=== PATIENT | female | born 1985 | race Caucasian/White ===

== ENCOUNTER → 2017-07-07 16:26 | Outpatient (CLI) | payer OTHER, SELFPAY ==
--- NOTE | 2017-07-07 16:31 | RAD_ITS ---
STUDY: X-RAY - ABDOMEN/PELVIS REASON FOR EXAM: Female, 32 years old. Pain. TECHNIQUE: AP supine and upright views of the abdomen and pelvis. COMPARISON: None. FINDINGS: Normal visualized lung bases. There is an unremarkable bowel gas pattern. There is no demonstrated free abdominal air. The visualized liver, spleen and kidneys are grossly normal in size and morphology. Normal soft tissue structures. Normal visualized osseous structures. RAD/Abd Inc Decub and/or Erect IMPRESSION: Normal x-ray examination of the abdomen and pelvis. Electronically Signed: Chaparro Castaneda MD at 16:54 EDT , Service support ,
== END ==
PROVIDERS: Family Provider Family Medicine; PCP Family Medicine; Visit Provider Nurse Practitioner Adult Health
DX: R10.9 Unspecified abdominal pain (principal)
CPT/HCPCS: 74019

== ENCOUNTER → 2017-07-09 10:46 | Outpatient (CLI) | payer OTHER, SELFPAY ==
[2017-07-09 12:06] LABS: Absolute Lymphocyte Count 2.98 X10^3/ul (0.83-4.51); Absolute Neutrophil Count 6.6 X10^3/uL (2.0-7.7); Basophil# 0.07 X10^3/uL; Basophil% 0.6 % (0-1); Eosinophil# 0.56 X10^3/uL; Eosinophils% 5.2 % (0-5); Hematocrit 40.7 % (37-47); Hemoglobin 13.8 g/dl (12.0-15.0); Lymphocyte # 2.98 X10^3/ul (4.0); Lymphocyte % 27.4 % (19-41); Mean Corp Hgb Conc 33.9 g/gl (32-36); Mean Corpuscular Hgb 29.3 pg (27.0-32.0); Mean Corpuscular Volume 86.4 fL (81-99); Mean Platelet Vol. 10.8 fl (6.2-12.0); Monocyte# 0.65 X10^3/uL; Neutrophil # 6.58 X10^3/uL (2.7-7.7); Neutrophil % 60.6 % (47-70); POSITIVE COUNT NO; POSITIVE DIFFERENTIAL NO; POSITIVE MORPHOLOGY NO; Platelet Count 368 K/mm3 (150-450); RBC Distribution Width CV 12.9 % (11.6-14.6); RBC Distribution Width SD 40.1 fl (35.1-43.9); Red Blood Count 4.71 M/mm3 (4.2-5.4); White Blood Count 10.9 K/mm3 (4.4-11.0)
[2017-07-09 12:21] LABS: D-Dimer Quantitative (DVT/PE) < 0.27 FEU/ug/m (0.27-0.49)
[2017-07-09 12:26] LABS: Anion Gap 7 (5-15); BUN 11 mg/dL (7-18); BUN/Creat Ratio 13.1 RATIO (10-20); Calcium,Total 9.1 mg/dL (8.5-10.1); Chloride 108 mmol/L (98-107); Creatinine, Serum 0.84 mg/dL (0.55-1.02); EST Glomerular Filtration Rate 83 mL/min (>60); Est Glom Filt Rate - Afr Amer 101 mL/min (>60); Glucose 83 mg/dL (74-106); Sodium Level 138 mmol/L (136-145)
== END ==
PROVIDERS: Family Provider Family Medicine; PCP Family Medicine; Visit Provider Family Medicine
DX: M54.9 Dorsalgia, unspecified (principal)
CPT/HCPCS: 36415; 80048; 85025; 85379

== ENCOUNTER 2017-07-12 18:14 | Emergency (ER) | payer OTHER, SELFPAY ==
[2017-07-12 18:15] VITALS: BP 129/82; PULSE 87; RESP 16; TEMP 37; O2SAT 99; BMI 41.5
--- NOTE | 2017-07-12 19:06 | CT_ITS ---
STUDY: CT ABDOMEN AND PELVIS WITH CONTRAST REASON FOR EXAM: Female, 32 years old. Left-sided abdominal pain. RADIATION DOSAGE (If Supplied By Facility): CTDIvol = ( 15.39 ) mGy, DLP = ( 1230.71 ) mGycm TECHNIQUE: Transaxial images were obtained from the dome of the diaphragm to the symphysis pubis without oral contrast. 100 ml of Isovue 300 contrast was administered. Sagittal and coronal images were reconstructed. Individualized dose optimization techniques were used for this CT. COMPARISON: 02/02/2013. FINDINGS: The visualized lung bases are unremarkable. The visualized portions of the heart are within normal limits. There is decreased attenuation of the liver consistent with steatosis. There is a solitary 3 cm gallstone. Normal spleen. Normal pancreas. Normal bilateral adrenal glands. Normal right kidney. Normal left kidney. Normal visualized stomach. Normal small intestine. Normal colon. The appendix is visualized and appears normal. Normal abdominal aorta. Normal inferior vena cava. Normal retroperitoneum. Normal urinary bladder. Normal visualized uterus. Normal abdominal wall. Degenerative changes seen of the disc at L4-L5, otherwise negative osseous structures. CT/Abdomen/Pelvis W IV Cont ONLY IMPRESSION: Cholelithiasis. Electronically Signed: Keo Gardner MD at 20:49 EDT , Service support ,
--- NOTE | 2017-07-12 19:06 | EKG12_ITS ---
Test Reason : CP Blood Pressure : / mmHG Vent. Rate : 080 BPM Atrial Rate : 080 BPM P-R Int : 150 ms QRS Dur : 088 ms QT Int : 384 ms P-R-T Axes : 009 025 018 degrees QTc Int : 442 ms Normal sinus rhythm Normal ECG Confirmed by OMAYRA FORRESTER MD ([id number]), manager editorial NIDA SALCEDO ([id number] on 07/15/2017 1:21:12 PM Referred By: ЕЛЕНА
--- NOTE | 2017-07-12 19:08 | ED.VISSUMM ---
- ER Visit Summary Date of Service: 07/12/17 Chief Complaint: Left flank and chest pain History of Present Illness: The patient is a 32 F 1 week history of left flank pain. Denies trauma. Denies radicular symptoms. No urinary symptoms. Saw PCP office initially 5 days ago had a urine test negative. X-rays told her constipation put on laxatives. She had daily bowel movements prior. Saw PCP on 3 days ago had urine test scans negative. She states she had a PE rule out with blood tests which was negative. No image studies. He was told likely muscle strain. 2 days ago intermittent left upper chest wax and waning chest pain worse with dyspnea. No cough. No PE risk factors. Patient only takes multivitamins. No tobacco history. States an uncle had heart failure which started in her 20s however no MIs. States pain is mild at this time however still has pain in the left flank and in her left upper chest. No previous similar symptoms in the past. Physical Examination: General: Alert and oriented ?3, no acute distress HEENT: Normocephalic, atraumatic. Moist mucosa membranes Neck: supple, nontender. Cardiovascular: Regular rate and rhythm, no murmurs Respiratory: Normal breath sounds, symmetric, no distress Abdomen: Soft, nontender, nondistended Back: Mild left CVA tenderness without rash or ecchymosis Extremities: Nontender, no edema, pulses intact ?4 Neuro: no focal neurological deficits. Test Results: EKG sinus rate of [address] or T-wave changes. Troponin negative. Hemoglobin 13.9. Creatinine 0.84. Urine noted blood. CT abdomen pelvis IV contrast notes cholelithiasis. Emergency Department Course and Treatment: Patient flank pain denies urine symptoms. Urine did no blood however she is on her menstrual period. HCG negative. CT abdomen pelvis IV contrast shows cholelithiasis. Cardiac workup negative. MAMADOU score 0. Heart scores a 1. Chest pain symptoms resolved. Reported outpatient d-dimer test was negative. Patient more reassured. She will follow-up with PCP for reevaluation further testing as needed. Treatment Plan: [] Disposition: Discharge Impression: 1. Atypical chest pain 2. Left flank pain This note was generated with [employer] software. It may contain incorrect words, spelling, and punctuation that were not noted in review of the chart prior to signing ED Disposition - Plan for ED Patient: Disposition: Home or Assisted Living Chief Complaint: Chest Pain Diagnosis: Atypical chest pain, Left flank pain Instructions: ED Chest Pain [facility] Ch, ED Flank Pain Uncertain Cause Referrals: Papo Guido MD [Primary Care Provider] - 3-5 Days
[2017-07-12 19:45] LABS: Bacteria 0 SEEN /hpf (None Seen); Mucous, Urine 0 SEEN /hpf (<or=2+)
[2017-07-12 19:47] LABS: Color, Urine Yellow (Yellow); Glucose, Dipstick Normal (Normal); Ketone-Dipstick Negative (Negative); Leukocyte Esterase-Dipstick 25 /ul (Negative); Nitrite-Dipstick Negative (Negative); Occult Blood-Urine 250 /ul (Negative); Protein-Dipstick Negative (Negative); Specific Gravity, Urine 1.015 (1.002-1.030); Urine Bilirubin Dipstick Negative (Negative); Urine Clarity Clear (Clear); Urine Urobilinogen Normal (Normal)
[2017-07-12 19:48] LABS: Absolute Neutrophil Count 7.3 X10^3/uL (2.0-7.7); Basophil# 0.08 X10^3/uL; Basophil% 0.6 % (0-1); Eosinophil# 0.93 X10^3/uL; Eosinophils% 7.2 % (0-5); Hematocrit 40.9 % (37-47); Hemoglobin 13.9 g/dl (12.0-15.0); Lymphocyte % 28.8 % (19-41); Mean Corpuscular Hgb 29.4 pg (27.0-32.0); Mean Corpuscular Volume 86.7 fL (81-99); Mean Platelet Vol. 10.4 fl (6.2-12.0); Monocyte# 0.79 X10^3/uL; Monocyte% 6.2 % (0-10); Neutrophil # 7.29 X10^3/uL (2.7-7.7); Neutrophil % 56.8 % (47-70); POSITIVE COUNT NO; POSITIVE DIFFERENTIAL NO; POSITIVE MORPHOLOGY NO; Platelet Count 371 K/mm3 (150-450); RBC Distribution Width CV 12.9 % (11.6-14.6); RBC Distribution Width SD 40.1 fl (35.1-43.9); Red Blood Count 4.72 M/mm3 (4.2-5.4); White Blood Count 12.8 K/mm3 (4.4-11.0)
[2017-07-12 19:53] LABS: Red Blood Cells-Urine 50-100 SEEN /hpf (0-5); Squamous Epithelial Cells - UA 0-5 SEEN /hpf (5-10); White Blood Cells 0-5 SEEN /hpf (0-5)
[2017-07-12] MEDS: 0.9% Normal Saline 1,000 ML 150 ML IV (19:59)
[2017-07-12 20:07] LABS: Anion Gap 7 (5-15); BUN 10 mg/dL (7-18); BUN/Creat Ratio 11.9 RATIO (10-20); Calcium,Total 8.8 mg/dL (8.5-10.1); Chloride 107 mmol/L (98-107); Creatinine, Serum 0.84 mg/dL (0.55-1.02); EST Glomerular Filtration Rate 83 mL/min (>60); Est Glom Filt Rate - Afr Amer 100 mL/min (>60); Estimated Creatinine Clearance 85.72 ml/min; Glucose 90 mg/dL (74-106); Potassium 3.7 mmol/L (3.5-5.1); Sodium Level 140 mmol/L (136-145)
[2017-07-12 20:31] LABS: Pregnancy, Serum, hCG Quali. NEGATIVE Negative (0-9 Nonpreg)
[2017-07-12 20:48] VITALS: BP 108/65; PULSE 74; RESP 18; O2SAT 99
[2017-07-12 22:02] VITALS: BP 120/71; PULSE 88; RESP 18; O2SAT 96
== END 2017-07-12 22:05 | disposition home or self-care (01) ==
PROVIDERS: Emergency Provider Emergency Medicine; Family Provider Family Medicine; PCP Family Medicine
DX: R07.89 Other chest pain (principal); R10.9 Unspecified abdominal pain; R06.00 Dyspnea, unspecified; K80.20 Calculus of gallbladder without cholecystitis without obstruction
CPT/HCPCS: 74177; 80048; 81001; 84484; 84703; 85025; 93005; 96360; 96361; 99284; J7030; Q9967; A4216

== ENCOUNTER → 2017-11-13 12:08 | Outpatient (CLI) | payer OTHER, SELFPAY | PROVIDERS: Family Provider Family Medicine; PCP Family Medicine; Visit Provider Family Medicine | DX: S99.921A Unspecified injury of right foot, initial encounter (principal); X58.XXXA Exposure to other specified factors, initial encounter; Y93.9 Activity, unspecified; Y92.9 Unspecified place or not applicable; Y99.9 Unspecified external cause status | CPT/HCPCS: 73630 ==

== ENCOUNTER 2018-04-22 09:50 | Emergency (ER) | payer OTHER, SELFPAY ==
[2018-04-22 09:53] VITALS: BP 122/88; PULSE 71; RESP 16; TEMP 36.7; O2SAT 98; BMI 41.1
--- NOTE | 2018-04-22 10:13 | CT_ITS ---
STUDY: CT BRAIN WITHOUT CONTRAST REASON FOR EXAM: Female, 32 years old. Headaches. Vertigo. RADIATION DOSAGE (If Supplied By Facility): CTDIvol = ( 44.99 ) mGy, DLP = ( 728.62 ) mGycm TECHNIQUE: Transaxial CT imaging of the brain was performed without administration of intravenous contrast material. Individualized dose optimization techniques were used for this CT. COMPARISON: None. FINDINGS: Normal soft tissue structures. Normal calvarium. Normal size ventricles and extra-axial spaces for the patient's age. Normal white matter tracts of the cerebral hemispheres. Normal basal ganglia and thalami. Normal brainstem. Normal cerebellum. There is no intracranial hemorrhage. There are no findings of an acute ischemic infarction. Normal visualized paranasal sinuses. CT/Brain/Head without Contrast IMPRESSION: Normal unenhanced CT scan of the brain. Electronically Signed: Noel Perrin MD at 11:38 EST , Service support ,
--- NOTE | 2018-04-22 10:41 | ED.VISSUMM ---
- ER Visit Summary Date of Service: 04/22/18 Chief Complaint: Migraine History of Present Illness: The patient is a 32 F with a frontal headache. The pain is located at her crown and behind both of her eyes. Worse with light. This has been going on for 4 days and has been getting worse. She reports associated nausea and vomiting with tinnitus and she did have some vertigo which resolved. She denies head injuries or blood thinners. She had migraines in college but has not had headaches for years. No fevers or other symptoms. Physical Examination: Afebrile and vital signs unremarkable. Alert and oriented. Uncomfortable but no acute distress. Head and neck atraumatic. HEENT exam unremarkable. Neck is nontender with no meningeal signs. Skin normal in color without rash. Good strength and sensation. Cranial nerves grossly intact. Test Results: CT brain pending Emergency Department Course and Treatment: Patient has a history of migraines. She does have new tinnitus and vertigo and her symptoms are worse than they have been. A CT was ordered. Please note that she did have a CTA which was unremarkable a few years ago. I have low suspicion for aneurysm. Treated with fluids, Compazine, Benadryl, Toradol while awaiting results. CT brain was unremarkable. On reevaluation, her pain was 1 or 2 out of 10. Patient will be discharged. Stay rested and hydrated. Follow-up with neurology and/or primary care. Treatment Plan: As above Disposition: Discharge Impression: 1. Acute headache This note was generated with [employer] dictation software. It may contain incorrect words, spelling, and punctuation that were not noted in review of the chart prior to signing ED Disposition - Plan for ED Patient: Referrals: Papo Guido MD [Primary Care Provider] -
[2018-04-22] MEDS: DiphenhydrAMINE 50 MG/ML Syringe IV (11:02)
[2018-04-22] MEDS: Ketorolac 30 MG/ML Syringe IV (11:02)
[2018-04-22] MEDS: 0.9% Normal Saline 1,000 ML 999 ML IV (11:02)
[2018-04-22] MEDS: proCHLORPERazine 10 MG/2 ML Vial IV (11:02)
--- NOTE | 2018-04-22 12:03 | ED.DEP ---
ED Disposition - Plan for ED Patient: Instructions: ED Cephalgia Unspecified Referrals: Papo Guido MD [Primary Care Provider] - Ryder Bucio MD [STAFF PHYSICIAN] -
[2018-04-22 12:29] VITALS: BP 119/73; PULSE 58; RESP 18; O2SAT 94
== END 2018-04-22 12:30 | disposition home or self-care (01) ==
PROVIDERS: Emergency Provider Emergency Medicine; Family Provider Family Medicine; PCP Family Medicine
DX: R51 Headache (principal); R11.2 Nausea with vomiting, unspecified; R42 Dizziness and giddiness; H93.19 Tinnitus, unspecified ear
CPT/HCPCS: 70450; 96361; 96374; 96375; 99283; J7030

== ENCOUNTER → 2018-05-26 16:27 | Outpatient (CLI) | payer OTHER, SELFPAY ==
[2018-05-29 11:57] LABS: EBV Acute VCA IgM < 36.0 U/mL (0.0-35.9); EBV Early Antigen IgG <9.0 U/mL (0.0-8.9); EBV Nuclear Antigen IgG 87.6 U/mL (0.0-17.9); EBV-VCA IgG < 18.0 U/mL (0.0-17.9)
== END ==
PROVIDERS: Family Provider Family Medicine; PCP Family Medicine; Referring Provider Family Medicine; Visit Provider Family Medicine
DX: J02.9 Acute pharyngitis, unspecified (principal)
CPT/HCPCS: 36415; 86663; 86664; 86665

== ENCOUNTER 2019-01-04 18:30 | Emergency (ER) | payer OTHER, SELFPAY ==
[2019-01-04 18:31] VITALS: BP 123/63; PULSE 77; RESP 16; TEMP 36.6; O2SAT 98; BMI 42.5
--- NOTE | 2019-01-04 18:49 | ED.DCSUM_ITS ---
History of Present Illness Chief Complaint: Cough Detail of Chief Complaint: Wheezing with history of asthma Informant: Patient, Significant Other Onset: Days - Onset of illness 10 days ago. Worse the past 36 hours Context: Gradual Onset Timing: Continuous Quality: Productive cough, Nasal symptoms and wheezing Location: Respiratory Current Severity: Mild Maximum Severity: Moderate Worsened by: Coughing and activity Relieved by: Nothing Associated Symptoms: Respiratory symptoms Narrative: Patient is a 33-year-old non-smoker who presents with wheezing and productive cough of colored sputum. Onset of illness 10 days ago. Worse the past 36 hours. She does report nasal congestion. Denies ear pain, decreased hearing or ringing or ears. She denies sore throat, change in voice or difficulty swallowing. She does report shortness of breath as well as wheezing. She used her inhaler twice today. She has not been on prednisone the last 3 to 6 months. There is no history of PE or DVT. She denies leg pain, swelling or discoloration. Prior similar symptoms: Yes Recent Illness/Hospitalization: No - Past Medical History (1) History of asthma Status: Acute Past Medical History - Allergies and Home Meds Allergies/Adverse Reactions: Allergies hydromorphone HCl [From Dilaudid] Allergy (Verified 01/04/19 18:33) Hives Penicillins Allergy (Verified 01/04/19 18:33) Rash Primary Care Physician: Papo Guido MD [Primary Care Provider] - Surgical History: and left knee repair Lives: Spouse/ Significant Other Smoking Status: Light Smoker (<10/day) Alcohol: Rare Drugs: None Review of Systems General: Denies: Chills, Fever, Sweats Eyes: Denies: Visual changes - bilaterally, Blurred Vision - bilaterally, Diplopia ENT: Reports: Rhinorrhea. Denies: Bilateral ear pain, Sore throat Cardiovascular: Reports: Chest pain. Denies: Palpitations, Heart racing Respiratory: Reports: Dyspnea, Cough, Sputum, Dyspnea on exertion, - - Wheezing. Denies: Orthopnea, Paroxysmal nocturnal dyspnea Gastrointestinal: Denies: Abdominal pain, Nausea, Vomiting, Diarrhea, Melena, Hematochezia Musculoskeletal: Denies: Myalgias, Arthralgias, Neck pain, Back pain, Swelling, Extremity Pain, -, - Skin: Denies: Rash, Wounds Neurological: Denies: Headache, Weakness, Parasthesia Hematologic: Denies: Easy bruising, Easy bleeding Physical Exam Vital Signs/Narrative: Vital Signs Temp Pulse Resp BP Pulse Ox 01/04/19 18:31 97.9 F 77 16 123/63 H 98 Inital Vital Signs reviewed: Yes General: Well nourished, Well developed, Obese, Acute Distress Head: Normocephalic, Atraumatic Eyes: Perrl, EOMI. Negative for: Pale conjunctiva, Scleral icterus ENT: Moist mucous membranes, No rhinorrhea, TM's clear Neck: Supple, Nontender, No lymphadenopathy, No JVD Cardiovascular: Regular rate, Regular rhythm, No murmurs, Normal S1, Normal S2 Respiratory: Chest nontender, Wheezing, Decreased Air Movement. Negative for: No distress, CTA bilaterally Abdomen: Soft, Nontender, Nondistended, Normal bowel sounds Rectal: Deferred Back: Nontender, Normal Inspection Extremities: Nontender, No edema Skin: Normal color, No rash Neurological: Alert, Oriented x3, Cranial nerves II-XII grossly intact, Normal Strength, Normal Sensation Psychological: Normal affect, Normal Mood Diagnostic/Tx/Re-eval Chest X-Ray - ED: 2 View, Read by ED Physician, Normal, Heart, Lungs, Medi astinum, Bony Structures, No Acute Disease - Medical Decision Making With history of pneumonia and productive cough with worsening symptoms chest x- ray was obtained to evaluate for pneumonia versus bronchitis. Patient will received 3 albuterol treatments and 60 mg of prednisone. After treatments have been completed, I will reexamine her. Patient was reexamined at 2054. There is no wheezing. There is good move air bilaterally. Will discharge home with prescription for spacer and burst of prednisone. ED Disposition - Plan for ED Patient: Disposition: Home or Assisted Living Diagnosis: Exacerbation of allergic asthma due to infection Instructions: BRONCHITIS with Wheezing (Adult) Prescriptions: Prednisone [Deltasone] 40 mg PO DAILY #10 tab Prescription Printed Inhaler, Assist Devices [Space Chamber Plus] 1 ea UD #1 spacer Prescription Printed Referrals: Papo Guido MD [Primary Care Provider] - 10-14 Days if not better Additional Instructions: Use spacer with your albuterol metered-dose inhaler. Recommend using your inhaler every 2-4 hours while awake for the next 2 to 3 days.
[2019-01-04] MEDS: Albuterol 2.5 MG/3 ML VIAL.NEB. INHALATION ×3 (18:56→19:05)
[2019-01-04 19:00] VITALS: PULSE 82; RESP 16
--- NOTE | 2019-01-04 19:15 | RAD_ITS ---
STUDY: X-RAY CHEST REASON FOR EXAM: Female, 33 years old. Productive cough and congestion TECHNIQUE: Frontal and lateral views of the chest. COMPARISON: 12/06/2016. FINDINGS: The lungs are clear and expanded. There is no demonstrated pleural abnormality. Normal size heart. Normal mediastinum and alpa. Normal visualized pulmonary arteries. Normal visualized aortic arch and descending thoracic aorta. Normal visualized thoracic spine. Normal visualized ribs, clavicles, and shoulders. There is no demonstrated abnormality of the visualized soft tissue structures of the upper abdomen. RAD/Chest PA and Lateral IMPRESSION: Normal x-ray examination of the chest. Electronically Signed: Keo Gardner MD at 19:40 EDT , Service support ,
[2019-01-04 19:24] VITALS: O2SAT 98
[2019-01-04] MEDS: predniSONE 20 MG Tablet 60 MG PO (19:26)
[2019-01-04 20:18] VITALS: PULSE 97; RESP 17; O2SAT 98
[2019-01-04 21:13] VITALS: PULSE 110; RESP 20; O2SAT 97
--- NOTE | 2019-01-04 21:14 | ED.RN ---
REVIEWED D/C INSTRUCTIONS, FOLLOW UP CARE, PRESCRIPTIONS, AND S/S THAT WOULD WARRANT A RETURN TO THE ED WITH PT. PT VERBALIZED AN UNDERSTANDING AND DENIES FURTHER QUESTIONS FOR THIS RN. PT SKIN P/W/D, RESP EVEN AND UNLABORED, PT A&O X 3, NO DISTRESS NOTED. PT AMBULATED OUT OF ED, GAIT STEADY.
== END 2019-01-04 21:15 | disposition home or self-care (01) ==
PROVIDERS: Emergency Provider Emergency Medicine; Family Provider Family Medicine; PCP Family Medicine
DX: J45.901 Unspecified asthma with (acute) exacerbation (principal); F17.200 Nicotine dependence, unspecified, uncomplicated; E66.9 Obesity, unspecified
CPT/HCPCS: 71046; 94640; 99284; J7030; A4216

== ENCOUNTER 2019-04-13 01:12 | Observation (INO) | payer OTHER, SELFPAY ==
[2019-04-13] VITALS (17 sets, daily range): BP systolic 99–135; BP diastolic 57–90; PULSE 48–92; RESP 14–22; TEMP 36.3–37.2; O2SAT 91–100; BMI 41.5; BMI 43.8; BMI 43.4
--- NOTE | 2019-04-13 02:13 | ED.DCSUM_ITS ---
History of Present Illness Chief Complaint: Abd Pain Narrative: Patient is a 33-year-old female who presents with abdominal pain. This is been present for about 4 to 5 hours. Her pain is in the right upper quadrant and radiates around to the back. It is sharp. It is colicky and waxes and wanes. She complains of associated nausea without vomiting. No fevers. No diarrhea. She denies urinary symptoms such as dysuria, frequency, urgency. No history of prior similar symptoms. No history of intolerance to fatty or greasy foods. She had last eaten about 2 hours before onset of symptoms and had eaten stew. Patient reports history of prior appendectomy, no other abdominal surgeries. She otherwise denies medical history and takes no daily medications. Past Medical History - Allergies and Home Meds Allergies/Adverse Reactions: Allergies hydromorphone HCl [From Dilaudid] Allergy (Verified 01/04/19 18:33) Hives Penicillins Allergy (Verified 01/04/19 18:33) Rash Primary Care Physician: Papo Guido MD [Primary Care Provider] - Past Medical History: None Surgical History: appendectomy Smoking Status: Former smoker Review of Systems All systems negative except as indicated General: Denies: Fever Cardiovascular: Denies: Chest pain Respiratory: Denies: Dyspnea Gastrointestinal: Reports: Abdominal pain, Nausea. Denies: Vomiting, Diarrhea Genitourinary: Denies: Dysuria, Frequency Musculoskeletal: Denies: Myalgias, Arthralgias Skin: Denies: Rash Neurological: Denies: Headache Hematologic: Denies: Easy bruising Allergy: Denies: Uticaria Physical Exam Vital Signs/Narrative: Vital Signs Temp Pulse Resp BP Pulse Ox 04/13/19 01:13 98 F 77 16 135/90 H 100 Inital Vital Signs reviewed: Yes General: Well nourished, Well developed Head: Normocephalic Eyes: EOMI ENT: Moist mucous membranes Neck: Supple Cardiovascular: Regular rate, Regular rhythm Respiratory: No distress, CTA bilaterally Abdomen: Soft, Nontender, Nondistended Back: Negative for: CVA tenderness Skin: Normal color Neurological: Alert Psychological: Normal affect Diagnostic/Tx/Re-eval Impressions Gallbladder Ultrasound 04/13/19 02:59 IMPRESSION: Large gallbladder calculus in the gallbladder neck with markedly distended gallbladder, multiple small layering smaller calculi. The gallbladder wall is within normal range, the ultrasonographic Muñiz''s sign however is recorded as positive which may indicate acute cholecystitis. Hepatomegaly and hepatic steatosis. Pancreas tail is obscured. Extent of biliary obstruction, ascites or hydronephrosis. Electronically Signed: Cassidy Hughes MD at 4:39 EST , Service support , 04/13/19 02:59 Gallbladder [US] Stat Laboratory Results 04/13/19 04/13/19 04/13/19 01:30 01:30 02:40 WBC 12.8 H RBC 4.74 Hgb 13.7 Hct 41.5 MCV 87.6 MCH 28.9 MCHC 33.0 RDW Std Deviation 39.7 RDW Coeff of [place] 12.2 Plt Count 383 MPV 10.9 Immature Gran % (Auto) 0.500 Neut % (Auto) 48.3 Lymph % (Auto) 38.7 [place] % (Auto) 5.8 Eos % (Auto) 5.8 H Baso % (Auto) 0.9 Absolute Neuts (auto) 6.2 Absolute Lymphs (auto) 4.97 H Nucleated RBC % 0 Sodium 140 Potassium 4.0 Chloride 109 H Carbon Dioxide 24.0 Anion Gap 7 BUN 10 Creatinine 1.00 Estim Creat Clear Calc 71.33 Est GFR (MDRD) Af Amer 81 Est GFR (MDRD) Non-Af 67 BUN/Creatinine Ratio 10.0 Glucose 104 Calcium 8.9 Total Bilirubin 0.10 L AST 16 ALT 29 Alkaline Phosphatase 46 Total Protein 7.3 Albumin 3.6 Globulin 3.7 Albumin/Globulin Ratio 1.0 Lipase 137 Urine Color Yellow Urine Clarity Clear Urine pH 5.0 Ur Specific [place] 1.020 Urine Protein Negative Urine Glucose (UA) Normal Urine Ketones 5 H Urine Occult Blood Negative Urine Nitrite Negative Urine Bilirubin Negative Urine Urobilinogen Normal Ur Leukocyte Esterase Negative Urine RBC 0-5 SEEN Urine WBC 0-5 SEEN Ur Squamous Epith Cells 0-5 SEEN Amorphous Sediment 1+ Urine Bacteria 0 SEEN Urine Mucus 0 SEEN - Medical Decision Making Patient's laboratory studies are notable only for mild leukocytosis. Her presentation is highly suggestive of biliary disease. Right upper quadrant ultrasound was obtained which shows a large gallstone within the gallbladder neck and a markedly distended gallbladder although there is no pericholecystic fluid or gallbladder wall thickening. Patient was treated with Toradol and Zofran here and does feel much better on reevaluation. I discussed the findings with general surgery on-call, Dr. Crews who feels this is most likely early acute cholecystitis. He agrees to admit the patient with plan for surgical intervention today. ED Disposition - Plan for ED Patient: Disposition: Acute Care [facility] Diagnosis: Acute cholecystitis due to biliary calculus Referrals: Papo Guido MD [Primary Care Provider] -
[2019-04-13 02:17] LABS: Absolute Lymphocyte Count 4.97 X10^3/uL (0.83-4.51); Absolute Neutrophil Count 6.2 X10^3/uL (2.0-7.7); Basophil# 0.12 X10^3/uL; Basophil% 0.9 % (0-1); Eosinophil# 0.74 X10^3/uL; Eosinophils% 5.8 % (0-5); Hematocrit 41.5 % (37-47); Hemoglobin 13.7 g/dL (12.0-15.0); Lymphocyte # 4.97 X10^3/ul (4.0); Lymphocyte % 38.7 % (19-41); Mean Corpuscular Hgb 28.9 pg (27.0-32.0); Mean Corpuscular Volume 87.6 fL (81-99); Mean Platelet Vol. 10.9 fl (6.2-12.0); Monocyte# 0.75 X10^3/uL; Monocyte% 5.8 % (0-10); NRBC Flagged by Analyzer 0 % (0-5); Neutrophil % 48.3 % (47-70); Platelet Count 383 K/mm3 (150-450); RBC Distribution Width CV 12.2 % (11.6-14.6); RBC Distribution Width SD 39.7 fl (35.1-43.9); Red Blood Count 4.74 M/mm3 (4.2-5.4); White Blood Count 12.8 K/mm3 (4.4-11.0)
[2019-04-13 02:34] LABS: AST(SGOT) 16 U/L (15-37); Alanine Aminotransfer ALT/SGPT 29 U/L (13-56); Albumin, Serum 3.6 g/dL (3.2-5.0); Alkaline Phosphatase 46 U/L (45-117); Anion Gap 7 (5-15); BUN 10 mg/dL (7-18); Calcium,Total 8.9 mg/dL (8.5-10.1); Chloride 109 mmol/L (98-107); EST Glomerular Filtration Rate 67 mL/min (>60); Est Glom Filt Rate - Afr Amer 81 mL/min (>60); Estimated Creatinine Clearance 71.33 ml/min; Globulin 3.7 g/dL (2.2-4.2); Glucose 104 mg/dL (74-106); Lipase 137 U/L (73-393); Protein, Total 7.3 g/dL (6.4-8.2); Sodium Level 140 mmol/L (136-145)
[2019-04-13] MEDS: 0.9% Normal Saline 1,000 ML 1000 ML IV (02:36)
[2019-04-13] MEDS: Ketorolac 30 MG/ML Syringe IV (02:36)
[2019-04-13] MEDS: Ondansetron 4 MG/2 ML Vial IV ×2 (02:36→22:46)
[2019-04-13 02:49] LABS: Bacteria 0 SEEN /hpf (None Seen); Color, Urine Yellow (Yellow); Glucose, Dipstick Normal (Normal); Ketone-Dipstick 5 mg/dl (Negative); Leukocyte Esterase-Dipstick Negative /ul (Negative); Mucous, Urine 0 SEEN /hpf (<or=2+); Nitrite-Dipstick Negative (Negative); Occult Blood-Urine Negative /ul (Negative); Protein-Dipstick Negative (Negative); Urine Bilirubin Dipstick Negative (Negative); Urine Clarity Clear (Clear); Urine Urobilinogen Normal (Normal)
[2019-04-13 02:57] LABS: Amorphous Sediment 1+; Red Blood Cells-Urine 0-5 SEEN /hpf (0-5); Squamous Epithelial Cells - UA 0-5 SEEN /hpf (5-10); White Blood Cells 0-5 SEEN /hpf (0-5)
--- NOTE | 2019-04-13 02:59 | US_ITS ---
STUDY: ABDOMINAL ULTRASOUND - RIGHT UPPER QUADRANT REASON FOR VISIT: Female, 33 years old RUQ PAIN RADIATES TO BACK AND NAUSEA TECHNIQUE: Ultrasound evaluation of the right upper quadrant was performed with real-time and static muller-scale imaging. TECHNICAL QUALITY: Adequate. COMPARISON: CT abdomen and pelvis 07/12/2017 FINDINGS: Liver: The liver measures 18.1 cm. There is increased echogenicity consistent with fatty infiltration. The bile ducts are within normal limits. There is hepatic color flow. The direction of portal flow is hepatopetal. There is no demonstrated mass lesion. Gallbladder: 10.5 cm distended gallbladder. The gallbladder wall measures 2 mm. There is a positive sonographic Muñiz''s sign. There is no pericholecystic fluid. There are multiple small echogenic structures within the gallbladder, consistent with multiple gallstones. There is a gallbladder neck calculus of 2 cm. Common Bile Duct (C.B.D.): The common bile duct measures 4 mm. Pancreas: Normal size of the head, body and obscured tail of the pancreas. There is normal echogenicity of the pancreas. Right Kidney: Normal size of the right kidney. The right kidney measures 11 x 4.7 x 4.3 cm. Normal renal cortex. The right cortex measures 1.3 cm. There is no demonstrated renal mass or cyst. There is no right hydronephrosis. US/Gallbladder IMPRESSION: Large gallbladder calculus in the gallbladder neck with markedly distended gallbladder, multiple small layering smaller calculi. The gallbladder wall is within normal range, the ultrasonographic Muñiz''s sign however is recorded as positive which may indicate acute cholecystitis. Hepatomegaly and hepatic steatosis. Pancreas tail is obscured. Extent of biliary obstruction, ascites or hydronephrosis. Electronically Signed: Cassidy Hughes MD at 4:39 EST , Service support ,
[2019-04-13] MEDS: 0.9% Normal Saline 1,000 ML 100 ML IV ×2 (05:47→13:46)
[2019-04-13] MEDS: Ciprofloxacin 400 MG/200 ML BAG 200 MG IV ×2 (05:48→23:04)
--- NOTE | 2019-04-13 05:55 | EKG12_ITS ---
Test Reason : PRE OP Blood Pressure : / mmHG Vent. Rate : 066 BPM Atrial Rate : 066 BPM P-R Int : 152 ms QRS Dur : 090 ms QT Int : 422 ms P-R-T Axes : 012 037 046 degrees QTc Int : 442 ms Normal sinus rhythm with sinus arrhythmia Low voltage QRS Borderline ECG When compared with ECG of 12-JUL-2017 18:21, No significant change was found Confirmed by ANKUR DAVILA ([id number]), purchase request editor JOSHUA KO ([id number]) on 04/15/2019 10:01:07 AM Referred By: RANJITH Confirmed By:ANKUR DAVILA
[2019-04-13] MEDS: metroNIDAZOLE 500 MG/100 ML BAG 100 MG IV ×3 (07:10→21:48)
--- NOTE | 2019-04-13 08:07 | PCM.HP.STD ---
Problem List (1) Acute cholecystitis due to biliary calculus Status: Acute History of Present Illness Date of Admission: 04/13/19 The patient is a 33 year old F presented to the emergency room with right upper quadrant pain radiating to the back. The patient also had nausea but no vomiting. The patient says the pain started yesterday. She has not felt well for the last few days. She says this morning the pain is slightly improved but is still in the right upper quadrant. The rest of her abdomen is not hurting her. Past Medical History Allergies hydromorphone HCl [From Dilaudid] Allergy (Verified 01/04/19 18:33) Hives Penicillins Allergy (Verified 01/04/19 18:33) Rash Home Medications: Ambulatory Orders Medication Instructions Recorded NK 04/13/19 Surgical History: appendectomy Smoking Status: Former smoker Tobacco Use: Cigarettes - *Family History Maternal History Items: No pertinent history Review of Systems Constitutional: Denies: Anorexia, Fever HEENT: Denies: Difficulty Swallowing Cardiovascular: Denies: Chest Pain Respiratory: Denies: Shortness of Breath Gastrointestinal: Reports: Abdominal Pain, Nausea. Denies: Constipation, Diarrhea, Vomiting Genitourinary: Denies: Dysuria Musculoskeletal: Denies: Arm Pain, Joint Tenderness Skin: Denies: Jaundice VTE Information - Inpt Only VTE Present on Admission: No VTE Mechan Device Prophylaxis: SCD's Patient Problems: Active and Suspected Problems Acute cholecystitis due to biliary calculus (Acute) - Physical Exam Vitals/I&O's: Vital Signs Temp Pulse Resp BP Pulse Ox 98.3 F 59 L 16 123/74 H 95 04/13/19 05:28 04/13/19 05:28 04/13/19 05:28 04/13/19 05:28 04/13/19 05:28 Oxygen Delivery Method Room Air Weight: 261 lb 3.964 oz Body Mass Index (BMI) 43.4 Intake and Output for Last 24 Hours 04/11/19 04/12/19 04/13/19 23:59 23:59 23:59 Intake Total 1201.67 / 1201.67 Balance 1201.67 / 1201.67 General: Alert, Oriented x3 Neck: No JVD Lungs: Normal air movement Cardiovascular: Regular rate, Regular Rhythm Abdomen: Soft, Non-Distended, Tender - Tender in the right upper quadrant with no rebound or guarding Extremities: No clubbing Skin: No rashes Musculoskeletal: No Muscle Wasting Neurological: Cranial nerves II-XII grossly intact Psych/Mental Status: Normal Affect Laboratory Results 04/13/19 01:30: WBC 12.8 H, RBC 4.74, Hgb 13.7, Hct 41.5, MCV 87.6, MCH 28.9, MCHC 33.0, RDW Std Deviation 39.7, RDW Coeff of [place] 12.2, Plt Count 383, MPV 10.9, Immature Gran % (Auto) 0.500, Neut % (Auto) 48.3, Lymph % (Auto) 38.7, [place] % (Auto) 5.8, Eos % (Auto) 5.8 H, Baso % (Auto) 0.9, Absolute Neuts (auto) 6.2, Absolute Lymphs (auto) 4.97 H, Nucleated RBC % 0 04/13/19 01:30: Sodium 140, Potassium 4.0, Chloride 109 H, Carbon Dioxide 24.0, Anion Gap 7, BUN 10, Creatinine 1.00, Estim Creat Clear Calc 71.33, Est GFR (MDRD) Af Amer 81, Est GFR (MDRD) Non-Af 67, BUN/Creatinine Ratio 10.0, Glucose 104, Calcium 8.9, Total Bilirubin 0.10 L, AST 16, ALT 29, Alkaline Phosphatase 46, Total Protein 7.3, Albumin 3.6, Globulin 3.7, Albumin/Globulin Ratio 1.0, Lipase 137 04/13/19 02:40: Urine Color Yellow, Urine Clarity Clear, Urine pH 5.0, Ur Specific [place] 1.020, Urine Protein Negative, Urine Glucose (UA) Normal, Urine Ketones 5 H, Urine Occult Blood Negative, Urine Nitrite Negative, Urine Bilirubin Negative, Urine Urobilinogen Normal, Ur Leukocyte Esterase Negative, Urine RBC 0-5 SEEN, Urine WBC 0-5 SEEN, Ur Squamous Epith Cells 0-5 SEEN, Amorphous Sediment 1+, Urine Bacteria 0 SEEN, Urine Mucus 0 SEEN Clinical Impression(s) from Imaging Studies Gallbladder Ultrasound 04/13/19 02:59 IMPRESSION: Large gallbladder calculus in the gallbladder neck with markedly distended gallbladder, multiple small layering smaller calculi. The gallbladder wall is within normal range, the ultrasonographic Muñiz''s sign however is recorded as positive which may indicate acute cholecystitis. Hepatomegaly and hepatic steatosis. Pancreas tail is obscured. Extent of biliary obstruction, ascites or hydronephrosis. Electronically Signed: Cassidy Hughes MD at 4:39 EST , Service support , Current Medications Acetaminophen (Tylenol) 650 mg PO Q4H PRN PRN PRN Reason: Pain Score 1-10/10/FEVER Sodium Chloride () 1,000 mls @ 100 mls/hr IV .Q10H [place] Last Infusion: 04/13/19 05:48 Dose: 0 mls/hr Documented by: Metronidazole (Flagyl) 500 mg in 100 mls @ 100 mls/hr IV Q8 [facility] Last Admin: 04/13/19 07:10 Dose: 100 mls/hr Documented by: Ciprofloxacin (Cipro) 400 mg in 200 mls @ 200 mls/hr IV Q12 [facility] Last Infusion: 04/13/19 07:15 Dose: Infused Documented by: Sodium Chloride () 250 mls @ 15 mls/hr IV .[id number] PRN PRN Reason: Saline Flush Sodium Chloride () 250 mls @ 15 mls/hr IV .[id number] PRN PRN Reason: Additional IVPB Infusion Influenza Virus Vaccine Quadrival (Flucelvax /Fluzone ) 0.5 ml IM .ONCE ONE Stop: 04/13/19 10:01 Ketorolac Tromethamine (Toradol (Bkc)) 15 mg IV Q8H PRN PRN PRN Reason: Pain Score 4-10/10 Stop: 04/15/19 05:00 Ondansetron HCl (Zofran) 4 mg IV Q6H PRN PRN PRN Reason: NAUSEA Sodium Chloride () 10 - 40 ml IV UD PRN PRN Reason: SALINE FLUSH Assessment/Plan All Active Problems History of asthma (Acute) Acute cholecystitis due to biliary calculus (Acute) 33-year-old female with cholelithiasis and possible cholecystitis 1. The patient is having right upper quadrant pain and ultrasound revealed a markedly distended gallbladder with positive sonographic Muñiz sign and large stone in the neck of the gallbladder. This is likely causing gallbladder obstruction and possibly early acute cholecystitis. She was admitted and kept n.p.o. started on antibiotics. I recommend laparoscopic cholecystectomy today. 2. I discussed the procedure in detail with the patient. I discussed the risks, benefits, and alternatives of the procedure. I discussed the risks including but not limited to bleeding, infection, injury to surrounding organs such as the liver, bile duct, bowels. I did discuss the possibility of having to convert to an open procedure as well as the possibility that if any injuries occurred this may necessitate further surgery at a tertiary care center. Arley Crews MD Pager: [facility] [address] [place] [address], [address] [place] [address] Office:
--- NOTE | 2019-04-13 10:00 | RAD_ITS ---
STUDY: INTRAOPERATIVE CHOLANGIOGRAM. REASON FOR EXAM: Female, 33 years old. ACUTE CHOLECYSTITIS, PAIN. FLUOROSCOPY TIME (if supplied): ( 18.1 seconds ) minutes/seconds TECHNIQUE: An intraoperative Cholangiogram was performed by the surgeon. Imaging was submitted. COMPARISON: None. FINDINGS: The visualized intrahepatic biliary ducts are unremarkable. The common bile duct is not dilated. No intraluminal filling defect is seen. There is free flow of contrast into the duodenum. RAD/Cholangiogram/ O R,Initial IMPRESSION: Unremarkable intraoperative cholangiogram. Electronically Signed: Noel Perrin, at 12:39 EST , Service support ,
--- NOTE | 2019-04-13 11:30 | GALL_PTH ---
PATIENT: CRISTIAN MARIN LOC: MS3 U#:[id number] AGE/SX: 33/F ROOM: MS306 RE04/13/[address]: Dr. Arley Crews MD : 1985 BED: 1 DIS: 04/14/2019 SPEC #: [id number] RECD: 04/13/19 14:55 STATUS: COLLETTE PABON #: [id number] SHAY: 04/13/19 11:[address]: Arley Crews DEPT: SURGICAL PATHOLOGY RECD BY: Chon Jaimes ENTERED: 04/14/19 07:57 SP TYPE: JONN NORRIS DR: Dr. Papo Guido MD Tissues: Gallbladder, NOS Procedures: Surgery Specimen Level III HEADER OPERATION: Laparoscopic cholecystectomy with IOC PRE-OP DIAGNOSIS: Acute cholecystitis due to biliary calculus TISSUE SUBMITTED: Gallbladder MICROSCOPIC DIAGNOSIS Gallbladder, cholecystectomy: Chronic cholecystitis and cholelithiasis. SJ:sorin 04/15/19 MICROSCOPIC DESCRIPTION Slides are reviewed. GROSS DESCRIPTION Received is one container labeled with the patient's name and designated gallbladder. The specimen consists of a gallbladder measuring 12.5 x 3 x 3 cm. The external surface is smooth and glistening. Focally, it is granular, hemorrhagic and contains cautery artifact. The lumen of the gallbladder contains greenish mucoid bile and a single, ovoid, greenish-huerta calculus measuring 3.6 cm in greatest dimension. The mucosa is bile-stained and without any mass lesions. The gallbladder wall averages 0.3 cm in thickness and is free of mass lesions. Supervisor Force Adjustment sections of the gallbladder and the cystic duct at margin of resection are submitted in one cassette. / AM:sorin 04/14/19 TC:3 CPT: 30212
[2019-04-13] MEDS: Bupiv/Epi 0.25% 30 ML Vial (12:26)
--- NOTE | 2019-04-13 12:37 | PCM.OPRPT ---
Problem List (1) Acute cholecystitis due to biliary calculus Status: Acute Report of Operation Date of Procedure: 04/13/19 Pre-Operative Diagnosis: Acute cholecystitis Post-Operative Diagnosis: Same Surgery/Procedure Performed:: Laparoscopic cholecystectomy with cholangiogram Specimen's removed: Gallbladder and contents Description of Procedure: After obtaining informed consent patient was brought back to the operating room. General anesthesia was induced. The abdomen was prepped and draped in usual sterile fashion. A small midline incision was made superior to the umbilicus and deepened to the level of fascia. The fascia was elevated and incised. Next the peritoneum was elevated and incised in the same fashion. Finger sweep was performed and the Ag trocar was placed into the abdomen. The balloon was inflated. The abdomen was inflated to 15 mmHg. Next a camera was introduced into the abdomen and the abdomen was inspected. Next under direct visualization three 5-mm ports were placed one subxiphoid and 2 subcostal. Next the gallbladder was elevated and retracted toward the right shoulder. The peritoneum was stripped from the gallbladder. The infundibulum was located and retracted laterally. Next the triangle of Calot was dissected and the cystic duct and cystic artery were identified. Cholangiograms were performed. The Chris clamp was used to clamp across the infundibulum and the catheter needle was inserted into the gallbladder. Under fluoroscopy contrast was instilled into the gallbladder and the common duct, cystic duct as well as proximal hepatic ducts were identified. There was good filling of the duodenum. There were no filling defects noted in the common bile duct. The clamp was removed as well as the needle and the infundibulum was grasped once more. Three hemolock clips were placed across the cystic duct. The cystic duct was then divided leaving 2 clips on the stump. The cystic artery was clipped and divided in the same fashion. The hook cautery was then used to take the gallbladder off of the gallbladder bed. Hemostasis was obtained. Gallbladder fossa was irrigated and no active bleeding or bile leakage was noted. Next the camera switched to a 5 mm camera and introduced in the subxiphoid port. An Endopouch bag was placed through the umbilical port and the gallbladder was placed into it. The gallbladder was very large and the stones were very large. The fascial incision and skin incision had to be extended. The gallbladder was then removed through the umbilical incision. The camera was then reinserted through the umbilical port. The gallbladder fossa was inspected once more and noted to be hemostatic with no leaking bile. The abdomen was suctioned dry. The 5 mm ports were removed under direct visualization. The umbilical port was then removed and the air was removed from the abdomen. Next using two 0 Vicryl sutures the umbilical fascia was closed in a [id number] fashion. The umbilical port site was irrigated local anesthetic was administered to all the incisions. All the incisions were closed with interrupted subcuticular 4-0 Monocryl sutures followed by Steri-Strips and dressings. The patient was awoken and taken to PACU in stable condition. - Admit VTE Documentation VTE Mechan Device Prophylaxis: SCD's
--- NOTE | 2019-04-13 12:39 | DCINST_ITS ---
Discharge Diet: Light diet - advance as tolerated Discharge Activity: Return to Normal Activity, May Not Drive - for 2-3 days or while taking narcotic pain medicataions., - - Do not drive, work heavy equipment or sign legal documents for 24 hours. May shower in (days): 1 - with the bandage in place. Lifting Restrictions: 20 lbs for 2 weeks Additional Activity Instructions:: Pain medication may cause nausea. You should typically eat light foods as you take your pain medications. Pain medication may also cause constipation. If this is a problem for you, please discuss with your doctor. Call your doctor if your incision/area has: Continuous Slow Oozing, Sudden Increased Bleeding, Increased Pain/ Swelling, Increased Redness, Foul Smelling Discharge, Fever of 101 or Higher Call your doctor if you observe: Fever of 101 or Higher Suture Line Care: Avoid Pulling/Pushing, Avoid Pinching/Bending Additional Dressing/Incision Instructions:: Leave operative bandaids on for 2 days. When you remove dressing, leave Steri-Strips on until your follow-up appointment, or until the Steri-Strips fall off on their own. Allergies/Adverse Reactions: Allergies hydromorphone HCl [From Dilaudid] Allergy (Verified 01/04/19 18:33) Hives Penicillins Allergy (Verified 01/04/19 18:33) Rash Medications to take at Discharge Acetaminophen [Tylenol Tablet] 650 mg PO Q4H PRN PRN tablet 04/13/19 Oxycodone [Oxyir] 5 - 10 mg PO Q4H PRN PRN 7 Days #40 tablet 04/13/19 The following prescriptions were given: Oxycodone [Oxyir] 5 - 10 mg PO Q4H PRN PRN 7 Days #40 tablet PRN Reason: Pain Score 4-10/10 Transmission Status: Sent to [facility] Primary Care Physician: Papo Guido MD [Primary Care Provider] - Test Results: Test results from this visit will be discussed in further detail at your follow- up appointment, if applicable. Please Follow Up With: Arley Crews MD When: Please call to schedule 2 week follow up appointment. [phone]
[2019-04-13] MEDS: Morphine 2 MG/ML Syringe IV (15:17)
[2019-04-13] MEDS: Ketorolac 15 MG/ML Vial IV (16:18)
[2019-04-13] MEDS: Acetaminophen 325 MG Tablet 650 MG PO (18:33)
[2019-04-13] MEDS: HYDROcodone Bitartrate/Apap 5/325 Tablet PO (21:48)
[2019-04-13] MEDS: 0.9% Saline Lock 10 ML Syringe IV (22:46)
--- NOTE | 2019-04-13 23:00 | NURSING ---
removed pt's scopolamine patch per request and disposed of in sharps container. pt does not feel it is helping her nausea.
[2019-04-14] MEDS: 0.9% Saline Lock 10 ML Syringe IV (00:19)
[2019-04-14] MEDS: Ketorolac 15 MG/ML Vial IV ×2 (00:19→09:39)
[2019-04-14] MEDS: 0.9% Normal Saline 1,000 ML 100 ML IV (03:08)
[2019-04-14 03:11] VITALS: BP 110/57; PULSE 55; RESP 16; TEMP 36.9; O2SAT 96
[2019-04-14] MEDS: HYDROcodone Bitartrate/Apap 5/325 Tablet PO ×2 (05:08→13:17)
[2019-04-14] MEDS: metroNIDAZOLE 500 MG/100 ML BAG 100 MG IV (05:09)
[2019-04-14 06:16] LABS: Absolute Lymphocyte Count 2.58 X10^3/uL (0.83-4.51); Absolute Neutrophil Count 8.5 X10^3/uL (2.0-7.7); Basophil# 0.06 X10^3/uL; Basophil% 0.5 % (0-1); Eosinophil# 0.18 X10^3/uL; Eosinophils% 1.5 % (0-5); Hematocrit 37.8 % (37-47); Lymphocyte # 2.58 X10^3/ul (4.0); Lymphocyte % 21.4 % (19-41); Mean Corp Hgb Conc 31.7 g/dL (32-36); Mean Corpuscular Hgb 28.8 pg (27.0-32.0); Mean Corpuscular Volume 90.9 fL (81-99); Mean Platelet Vol. 10.6 fl (6.2-12.0); Monocyte# 0.71 X10^3/uL; Monocyte% 5.9 % (0-10); NRBC Flagged by Analyzer 0 % (0-5); Neutrophil # 8.48 X10^3/uL (2.7-7.7); Neutrophil % 70.2 % (47-70); Platelet Count 311 K/mm3 (150-450); RBC Distribution Width CV 12.5 % (11.6-14.6); RBC Distribution Width SD 41.7 fl (35.1-43.9); Red Blood Count 4.16 M/mm3 (4.2-5.4); White Blood Count 12.1 K/mm3 (4.4-11.0)
[2019-04-14 06:48] LABS: ALB/GLOB Ratio 0.9 RATIO (0.9-2.4); AST(SGOT) 38 U/L (15-37); Alanine Aminotransfer ALT/SGPT 48 U/L (13-56); Albumin, Serum 2.9 g/dL (3.2-5.0); Alkaline Phosphatase 41 U/L (45-117); Anion Gap 2 (5-15); BUN 6 mg/dL (7-18); BUN/Creat Ratio 7.5 RATIO (10-20); Chloride 110 mmol/L (98-107); EST Glomerular Filtration Rate 87 mL/min (>60); Est Glom Filt Rate - Afr Amer 105 mL/min (>60); Estimated Creatinine Clearance 89.16 ml/min; Globulin 3.2 g/dL (2.2-4.2); Glucose 98 mg/dL (74-106); Potassium 4.4 mmol/L (3.5-5.1); Protein, Total 6.1 g/dL (6.4-8.2); Sodium Level 140 mmol/L (136-145)
[2019-04-14] MEDS: Ciprofloxacin 400 MG/200 ML BAG 200 MG IV (09:39)
[2019-04-14 09:50] VITALS: BP 125/67; PULSE 66; RESP 16; TEMP 36.6; O2SAT 96
[2019-04-14] MEDS: Ondansetron 4 MG/2 ML Vial IV (09:56)
== END 2019-04-14 15:09 | disposition home or self-care (01) ==
LOC: ED 04:57 → MS3 05:06
PROVIDERS: Admitting Provider Surgery; Emergency Provider Emergency Medicine; PCP Family Medicine; Visit Provider Surgery
PROC: (CPT 47610; principal; 2019-04-13 11:10)
DX: K80.12 Calculus of gallbladder with acute and chronic cholecystitis without obstruction (principal); Z87.891 Personal history of nicotine dependence; K21.9 Gastro-esophageal reflux disease without esophagitis; R11.2 Nausea with vomiting, unspecified; Z98.890 Other specified postprocedural states; Z90.49 Acquired absence of other specified parts of digestive tract
CPT/HCPCS: 00790; 47563; 36415; 74177; 74300; 76000; 76705; 78226; 80048; 80053; 81001; 83690; 85025; 88304; 93005; 96361; 96365; 96366; 96367; 96374; 96375; 96376; 97802; 99218; 99282; 99285; A9537; J7030; J7120; Q9967; A4216; G0378; J0744; J2405

== ENCOUNTER 2019-04-14 21:13 | Observation (INO) | payer OTHER, SELFPAY ==
[2019-04-13 07:40] VITALS: BMI 43.4
[2019-04-14 21:14] VITALS: BP 139/83; PULSE 74; RESP 16; TEMP 36.9; O2SAT 96; BMI 44.7
--- NOTE | 2019-04-14 21:33 | CT_ITS ---
STUDY: CT ABDOMEN AND PELVIS WITHOUT CONTRAST REASON FOR EXAM: Female, 33 years old. N/V CHOLECYSTECTOMY 04/13/19. Prior appendectomy RADIATION DOSAGE (If Supplied By Facility): CTDIvol = ( 15.42 ) mGy, DLP = ( 1377.62 ) mGycm TECHNIQUE: Transaxial images were obtained from the dome of the diaphragm to the symphysis pubis without oral contrast, and without intravenous contrast. Sagittal and coronal images were reconstructed. Individualized dose optimization techniques were used for this CT. COMPARISON: None. FINDINGS: Right lower lobe posterior atelectatic changes are present with minimal bilateral small effusions not excluded. The visualized portions of the heart are within normal limits. Normal liver. There is been interval cholecystectomy with noted complex heterogeneous fluid within the gallbladder fossa possibly due to postsurgical changes with small fluid extending along the anterior renal fascia from the gallbladder fossa. Normal spleen. Normal pancreas. Normal bilateral adrenal glands. Normal right kidney. Normal left kidney. Normal visualized stomach. Normal small intestine. Normal colon. There is non-visualization of the appendix. Normal abdominal aorta. Normal inferior vena cava. Normal retroperitoneum. Normal urinary bladder. Right ovarian simple appearing adnexal cyst is present measuring 2 cm. There is scattered subcutaneous emphysema within the anterior abdomen consistent with postsurgical changes and mild areas of edema. Normal osseous structures. CT/Abdomen/Pelvis W IV Cont ONLY IMPRESSION: 1. Findings consistent with recent cholecystectomy with mild complex fluid within the gallbladder fossa with no evidence of significant inflammation or evidence of abscess. Postoperative changes in the anterior abdominal wall with no evidence of underlying fluid layering. No evidence of bowel wall dilatation or air-fluid levels to suggest ileus versus obstruction. Electronically Signed: Noel Stewart DO at 22:52 EST , Service support ,
[2019-04-14] MEDS: 0.9% Normal Saline 1,000 ML 1000 ML IV (22:07)
[2019-04-14] MEDS: Morphine 4 MG/ML Syringe IV (22:07)
[2019-04-14] MEDS: Ondansetron 4 MG/2 ML Vial IV (22:07)
[2019-04-14 22:24] LABS: Absolute Lymphocyte Count 2.07 X10^3/uL (0.83-4.51); Absolute Neutrophil Count 10.8 X10^3/uL (2.0-7.7); Basophil# 0.09 X10^3/uL; Basophil% 0.6 % (0-1); Eosinophil# 0.29 X10^3/uL; Eosinophils% 2.1 % (0-5); Hematocrit 37.2 % (37-47); Hemoglobin 12.1 g/dL (12.0-15.0); Lymphocyte # 2.07 X10^3/ul (4.0); Lymphocyte % 14.7 % (19-41); Mean Corp Hgb Conc 32.5 g/dL (32-36); Mean Corpuscular Volume 89.2 fL (81-99); Mean Platelet Vol. 10.6 fl (6.2-12.0); Monocyte# 0.74 X10^3/uL; Monocyte% 5.3 % (0-10); NRBC Flagged by Analyzer 0 % (0-5); Neutrophil # 10.79 X10^3/uL (2.7-7.7); Neutrophil % 76.9 % (47-70); Platelet Count 309 K/mm3 (150-450); RBC Distribution Width CV 12.4 % (11.6-14.6); RBC Distribution Width SD 40.5 fl (35.1-43.9); Red Blood Count 4.17 M/mm3 (4.2-5.4)
[2019-04-14 22:39] LABS: ALB/GLOB Ratio 0.9 RATIO (0.9-2.4); AST(SGOT) 48 U/L (15-37); Alanine Aminotransfer ALT/SGPT 58 U/L (13-56); Albumin, Serum 3.1 g/dL (3.2-5.0); Alkaline Phosphatase 45 U/L (45-117); Anion Gap 2 (5-15); BUN 5 mg/dL (7-18); BUN/Creat Ratio 5.9 RATIO (10-20); Calcium,Total 8.3 mg/dL (8.5-10.1); Chloride 109 mmol/L (98-107); Creatinine, Serum 0.84 mg/dL (0.55-1.02); EST Glomerular Filtration Rate 82 mL/min (>60); Est Glom Filt Rate - Afr Amer 99 mL/min (>60); Estimated Creatinine Clearance 84.92 ml/min; Globulin 3.4 g/dL (2.2-4.2); Glucose 97 mg/dL (74-106); Lipase 104 U/L (73-393); Potassium 3.8 mmol/L (3.5-5.1); Protein, Total 6.5 g/dL (6.4-8.2); Sodium Level 139 mmol/L (136-145)
[2019-04-14 23:13] VITALS: BP 110/90; PULSE 73; RESP 16; O2SAT 94
--- NOTE | 2019-04-14 23:54 | ED.VISSUMM ---
- ER Visit Summary Date of Service: 04/14/19 Chief Complaint: Abdominal pain History of Present Illness: The patient is a 33 F with abdominal pain, nausea, vomiting. She is postop cholecystectomy by Dr. Crews today. Physical Examination: Afebrile and vital signs unremarkable. Patient has diffuse abdominal tenderness. No guarding or rebound. Dressings in place. Test Results: White count 14. ALT and AST very slightly elevated. Lipase normal. Otherwise labs normal. CT abdomen showed postoperative changes. No signs of obstruction. Emergency Department Course and Treatment: Patient was treated with morphine and Zofran. She also received IV fluids. She had continued nausea and pain. She was discussed with Dr. Crews. Because of her continued nausea and inability to tolerate p.o., she will be admitted for observation. Treatment Plan: As above Disposition: Admission Impression: Nausea and vomiting Abdominal pain This note was generated with [employer] dictation software. It may contain incorrect words, spelling, and punctuation that were not noted in review of the chart prior to signing ED Disposition - Plan for ED Patient: Referrals: Papo Guido MD [Primary Care Provider] -
[2019-04-15] VITALS (9 sets, daily range): BP systolic 107–138; BP diastolic 64–90; PULSE 58–80; RESP 16–20; TEMP 36.5–36.9; O2SAT 88–100; BMI 44.6
[2019-04-15] MEDS: 0.9% Saline Lock 10 ML Syringe IV (01:27)
[2019-04-15] MEDS: 0.9% Normal Saline 1,000 ML 125 ML IV ×3 (01:32→17:10)
[2019-04-15] MEDS: Ketorolac 15 MG/ML Vial IV ×2 (03:28→17:12)
[2019-04-15 06:26] LABS: Absolute Lymphocyte Count 2.71 X10^3/uL (0.83-4.51); Absolute Neutrophil Count 9.1 X10^3/uL (2.0-7.7); Basophil# 0.08 X10^3/uL; Basophil% 0.6 % (0-1); Hematocrit 34.1 % (37-47); Hemoglobin 10.7 g/dL (12.0-15.0); Lymphocyte # 2.71 X10^3/ul (4.0); Lymphocyte % 20.6 % (19-41); Mean Corp Hgb Conc 31.4 g/dL (32-36); Mean Corpuscular Hgb 27.6 pg (27.0-32.0); Mean Corpuscular Volume 88.1 fL (81-99); Mean Platelet Vol. 10.5 fl (6.2-12.0); Monocyte# 0.78 X10^3/uL; Monocyte% 5.9 % (0-10); NRBC Flagged by Analyzer 0 % (0-5); Neutrophil # 9.11 X10^3/uL (2.7-7.7); Neutrophil % 69.5 % (47-70); Platelet Count 266 K/mm3 (150-450); RBC Distribution Width CV 12.5 % (11.6-14.6); RBC Distribution Width SD 39.9 fl (35.1-43.9); Red Blood Count 3.87 M/mm3 (4.2-5.4); White Blood Count 13.1 K/mm3 (4.4-11.0)
[2019-04-15 06:49] LABS: Anion Gap 5 (5-15); BUN 4 mg/dL (7-18); BUN/Creat Ratio 6.7 RATIO (10-20); Calcium,Total 7.7 mg/dL (8.5-10.1); Chloride 108 mmol/L (98-107); EST Glomerular Filtration Rate 121 mL/min (>60); Est Glom Filt Rate - Afr Amer 147 mL/min (>60); Estimated Creatinine Clearance 118.88 ml/min; Glucose 91 mg/dL (74-106); Potassium 3.6 mmol/L (3.5-5.1); Sodium Level 137 mmol/L (136-145)
--- NOTE | 2019-04-15 07:24 | NM_ITS ---
STUDY: HIDA SCAN REASON FOR EXAM: Female, 33 years old. GALLBLADDER REMOVED YESTERDAY -- HAD PAIN AND NAUSEA AND VOMITING SO RETURNED TECHNIQUE: Patient was injected with 6 mCi of technetium 99m mebrofenin. Scinti photos obtained every minute up to 60 minutes. COMPARISON: None. FINDINGS: The gallbladder was recently removed. There is normal uptake concentration and excretion of radiotracer by the liver into the biliary tree. No suspicious hepatic lesion is identified. There is normal flow radiotracer into the common bile duct and duodenum. Radiotracer within the duodenum is noted 15 minutes. At 60 minutes, almost all of the radiotracer has left liver. No evidence of bile leak or biloma. NM/Hepatobilliary Imaging IMPRESSION: Normal study, no evidence to suspect bile leak Electronically Signed: Mariano Nichols MD at 9:54 EST , Service support ,
--- NOTE | 2019-04-15 08:34 | PCM.HP.STD ---
Problem List (1) Acute cholecystitis due to biliary calculus Status: Acute History of Present Illness Date of Admission: 04/15/19 The patient is a 33 year old F who presented back to the emergency room with right upper quadrant pain and vomiting. The patient had a laparoscopic cholecystectomy 2 days ago. Yesterday she did vomit up breakfast but she did tolerate lunch. She went home and then continue to vomit. She is still complaining of right upper quadrant pain. This morning she is still having some right upper quadrant pain and right back pain. Past Medical History Allergies hydromorphone HCl [From Dilaudid] Allergy (Verified 04/14/19 21:17) Hives Penicillins Allergy (Verified 04/14/19 21:17) Rash Home Medications: Ambulatory Orders Medication Instructions Recorded Hydrocodone/Acetaminophen 1 - 2 tab PO Q6H PRN 7 Days #40 tab 04/13/19 [Hydrocodon-Acetaminophen 5-325] Ondansetron [Zofran Odt] 4 mg PO Q8H PRN PRN #10 tab 04/14/19 Surgical History: appendectomy, cholecystectomy Smoking Status: Never smoker - *Family History Maternal History Items: No pertinent history Review of Systems Constitutional: Reports: Anorexia. Denies: Fever HEENT: Denies: Difficulty Swallowing Cardiovascular: Denies: Chest Pain, Claudication Respiratory: Denies: Cough, Shortness of Breath Gastrointestinal: Reports: Abdominal Pain, Nausea, Vomiting Genitourinary: Denies: Dysuria Musculoskeletal: Denies: Joint Tenderness Skin: Denies: Jaundice VTE Information - Inpt Only VTE Present on Admission: No VTE Mechan Device Prophylaxis: SCD's - Physical Exam Vitals/I&O's: Vital Signs Temp Pulse Resp BP Pulse Ox 97.8 F 58 L 16 115/64 97 04/15/19 08:24 04/15/19 08:24 04/15/19 08:24 04/15/19 08:24 04/15/19 08:24 Oxygen Flow Rate (L/min) 1 Oxygen Delivery Method Room Air Weight: 268 lb 1.314 oz Body Mass Index (BMI) 44.6 Intake and Output for Last 24 Hours 04/13/19 04/14/19 04/15/19 23:59 23:59 23:59 Intake Total 1000 / 1000 870.83 / 870.83 Balance 1000 / 1000 870.83 / 870.83 General: Alert, Oriented x3 Neck: No JVD Lungs: Normal air movement Cardiovascular: Regular rate, Regular Rhythm Abdomen: Soft, Non-Distended, Tender - Tender in the right upper quadrant Skin: No rashes Musculoskeletal: No Tenderness to Palpation of Joints or Extremities Neurological: Cranial nerves II-XII grossly intact Psych/Mental Status: Normal Affect Laboratory Results 04/14/19 22:02: WBC 14.0 H, RBC 4.17 L, Hgb 12.1, Hct 37.2, MCV 89.2, MCH 29.0, MCHC 32.5, RDW Std Deviation 40.5, RDW Coeff of Bibiana 12.4, Plt Count 309, MPV 10.6, Immature Gran % (Auto) 0.400, Neut % (Auto) 76.9 H, Lymph % (Auto) 14.7 L, [place] % (Auto) 5.3, Eos % (Auto) 2.1, Baso % (Auto) 0.6, Absolute Neuts (auto) 10.8 H, Absolute Lymphs (auto) 2.07, Nucleated RBC % 0 04/14/19 22:02: Sodium 139, Potassium 3.8, Chloride 109 H, Carbon Dioxide 28.0, Anion Gap 2 L, BUN 5 L, Creatinine 0.84, Estim Creat Clear Calc 84.92, Est GFR (MDRD) Af Amer 99, Est GFR (MDRD) Non-Af 82, BUN/Creatinine Ratio 5.9 L, Glucose 97, Calcium 8.3 L, Total Bilirubin 0.20, AST 48 H, ALT 58 H, Alkaline Phosphatase 45, Total Protein 6.5, Albumin 3.1 L, Globulin 3.4, Albumin/Globulin Ratio 0.9, Lipase 104 04/15/19 06:10: WBC 13.1 H, RBC 3.87 L, Hgb 10.7 L, Hct 34.1 L, MCV 88.1, MCH 27.6, MCHC 31.4 L, RDW Std Deviation 39.9, RDW Coeff of Bibiana 12.5, Plt Count 266, MPV 10.5, Immature Gran % (Auto) 0.400, Neut % (Auto) 69.5, Lymph % (Auto) 20.6, [place] % (Auto) 5.9, Eos % (Auto) 3.0, Baso % (Auto) 0.6, Absolute Neuts (auto) 9.1 H, Absolute Lymphs (auto) 2.71, Nucleated RBC % 0 04/15/19 06:10: Sodium 137, Potassium 3.6, Chloride 108 H, Carbon Dioxide 24.0, Anion Gap 5, BUN 4 L, Creatinine 0.60, Estim Creat Clear Calc 118.88, Est GFR (MDRD) Af Amer 147, Est GFR (MDRD) Non-Af 121, BUN/Creatinine Ratio 6.7 L, Glucose 91, Calcium 7.7 L Clinical Impression(s) from Imaging Studies Abdomen/Pelvis CT 04/14/19 21:33 IMPRESSION: 1. Findings consistent with recent cholecystectomy with mild complex fluid within the gallbladder fossa with no evidence of significant inflammation or evidence of abscess. Postoperative changes in the anterior abdominal wall with no evidence of underlying fluid layering. No evidence of bowel wall dilatation or air-fluid levels to suggest ileus versus obstruction. Electronically Signed: Noel Stewart DO at 22:52 EST , Service support , Current Medications Acetaminophen (Tylenol) 650 mg PO Q4H PRN PRN PRN Reason: Pain (1-10/10) or Fever Sodium Chloride () 1,000 mls @ 125 mls/hr IV .Q8H [facility] Last Infusion: 04/15/19 08:30 Dose: 0 mls/hr Documented by: Ketorolac Tromethamine (Toradol (Bkc)) 15 mg IV Q8H PRN PRN PRN Reason: Pain Score 4-10/10 Stop: 04/16/19 23:48 Last Admin: 04/15/19 03:28 Dose: 15 mg Documented by: Morphine Sulfate () 2 - 4 mg IV Q2H PRN PRN PRN Reason: Pain Score 4-10/10 Morphine Sulfate () 2 - 4 mg IV Q2H PRN PRN PRN Reason: Pain Score 4-10/10 Ondansetron HCl (Zofran) 4 mg IV Q6H PRN PRN PRN Reason: NAUSEA Pantoprazole Sodium (Protonix) 20 mg PO DAILY [facility] Promethazine HCl (Phenergan) 12.5 mg IV Q6H PRN PRN PRN Reason: NAUSEA/VOMITING Sodium Chloride () 10 - 40 ml IV UD PRN PRN Reason: SALINE FLUSH Last Admin: 04/15/19 01:27 Dose: 10 ml Documented by: Assessment/Plan All Active Problems History of asthma (Acute) Acute cholecystitis due to biliary calculus (Acute) 33-year-old female status post laparoscopic cholecystectomy with nausea and vomiting 1. The patient is experiencing continued right upper quadrant pain and nausea and vomiting. The patient has CT scan in the ER yesterday which showed no distended bowel. She did have a small amount of fluid in the gallbladder fossa. I am unsure if the patient has a small bile leak. I will order a HIDA scan today and keep the patient n.p.o. until resulted. I did discuss ERCP with stent placement if the HIDA was positive for bile leak. Arley Crews MD Pager: [facility] [address] [place] [address], [address] [place] [address] Office:
[2019-04-15] MEDS: Pantoprazole Sodium 20 MG Tablet PO (10:00)
[2019-04-15] MEDS: Acetaminophen 325 MG Tablet 650 MG PO (15:38)
[2019-04-16] MEDS: 0.9% Normal Saline 1,000 ML 125 ML IV (02:46)
[2019-04-16 05:02] VITALS: BP 137/78; PULSE 80; RESP 16; TEMP 37.1; O2SAT 92
--- NOTE | 2019-04-16 07:59 | PCM.PN.SRG ---
Subjective: Patient is doing better today. She says she was able to tolerate some food for dinner yesterday. She is not having any nausea this morning. Her pain is improving. - Physical Exam Vitals/I&O's: Vital Signs Temp Pulse Resp BP Pulse Ox 98.7 F 80 16 137/78 H 92 04/16/19 05:02 04/16/19 05:02 04/16/19 05:02 04/16/19 05:02 04/16/19 05:02 Oxygen Flow Rate (L/min) 1 Oxygen Delivery Method Room Air Weight: 268 lb 1.314 oz Body Mass Index (BMI) 44.6 Intake and Output for Last 24 Hours 04/14/19 04/15/19 04/16/19 23:59 23:59 23:59 Intake Total 1000 / 1000 2858.33 / 2858.33 1308.33 / 1308.33 Balance 1000 / 1000 2858.33 / 2858.33 1308.33 / 1308.33 General: Alert, Oriented x3 Abdomen: Soft, Non-Distended Current Medications Acetaminophen (Tylenol) 650 mg PO Q4H PRN PRN PRN Reason: Pain (1-10/10) or Fever Last Admin: 04/15/19 15:38 Dose: 650 mg Documented by: Sodium Chloride () 1,000 mls @ 125 mls/hr IV .Q8H [facility] Last Admin: 04/16/19 02:46 Dose: 125 mls/hr Documented by: Ketorolac Tromethamine (Toradol (Bkc)) 15 mg IV Q8H PRN PRN PRN Reason: Pain Score 4-10/10 Stop: 04/16/19 23:48 Last Admin: 04/15/19 17:12 Dose: 15 mg Documented by: Morphine Sulfate () 2 - 4 mg IV Q2H PRN PRN PRN Reason: Pain Score 4-10/10 Morphine Sulfate () 2 - 4 mg IV Q2H PRN PRN PRN Reason: Pain Score 4-10/10 Ondansetron HCl (Zofran) 4 mg IV Q6H PRN PRN PRN Reason: NAUSEA Pantoprazole Sodium (Protonix) 20 mg PO DAILY [place] Last Admin: 04/15/19 10:00 Dose: 20 mg Documented by: Promethazine HCl (Phenergan) 12.5 mg IV Q6H PRN PRN PRN Reason: NAUSEA/VOMITING Sodium Chloride () 10 - 40 ml IV UD PRN PRN Reason: SALINE FLUSH Last Admin: 04/15/19 01:27 Dose: 10 ml Documented by: Medical Necessity - Tobacco Use Smoking Status: Never smoker Assessment/Plan All Active Problems History of asthma (Acute) Acute cholecystitis due to biliary calculus (Acute) 33-year-old female with nausea and vomiting after cholecystectomy 1. Patient appears to be improving. If she tolerates breakfast I will discharge her home. Arley Crews MD Pager: [facility] [address] [place] [address], [address] [place] [address] Office:
--- NOTE | 2019-04-16 08:01 | DCINST_ITS ---
You will use the following diet at home:: Regular Your food should be the consistency of: Regular Discharge Activity: No Restrictions, May Shower Lifting Restrictions: 20 lbs for 2 weeks Call your doctor if your incision/area has: Continuous Slow Oozing, Sudden Increased Bleeding, Increased Pain/ Swelling, Increased Redness, Foul Smelling Discharge, Swelling at the incision site Call your doctor if you observe: Fever of 101 or Higher Allergies/Adverse Reactions: Allergies hydromorphone HCl [From Dilaudid] Allergy (Verified 04/14/19 21:17) Hives Penicillins Allergy (Verified 04/14/19 21:17) Rash Medications to take at Discharge Hydrocodone/Acetaminophen [Hydrocodon-Acetaminophen 5-325] 1 - 2 tab PO Q6H PRN 7 Days #40 tab 04/13/19 Ondansetron [Zofran Odt] 4 mg PO Q8H PRN PRN #10 tab 04/14/19 Primary Care Physician: Papo Guido MD [Primary Care Provider] - Test Results: Test results from this visit will be discussed in further detail at your follow- up appointment, if applicable. Please Follow Up With: Arley Crews MD When: Please call to schedule 2 week follow up appointment. [phone]
[2019-04-16 09:00] VITALS: BP 139/87; PULSE 91; RESP 16; TEMP 36.5; O2SAT 97
[2019-04-16] MEDS: Pantoprazole Sodium 20 MG Tablet PO (09:44)
== END 2019-04-16 09:53 | disposition home or self-care (01) ==
LOC: ED 21:57 → MS3 04-15 00:01
PROVIDERS: Admitting Provider Surgery; Emergency Provider Emergency Medicine; PCP Family Medicine; Referring Provider Surgery; Visit Provider Surgery
DX: R11.2 Nausea with vomiting, unspecified (principal); Z98.890 Other specified postprocedural states; Z90.49 Acquired absence of other specified parts of digestive tract
CPT/HCPCS: 36415; 74177; 78226; 80048; 80053; 83690; 85025; 96361; 96374; 96375; 96376; 97802; 99218; 99285; A9537; J7030; Q9967; A4216; G0378; J2405

== ENCOUNTER → 2019-05-02 09:59 | Outpatient (CLI) | payer OTHER, SELFPAY ==
[2019-04-15 00:41] VITALS: BMI 44.6
--- NOTE | 2019-05-02 09:00 | RAD_ITS ---
EXAM DESCRIPTION: Right shoulder arthrogram injection under fluoroscopy CLINICAL HISTORY: 33 years Female, RT SHOULDER SPRAIN/PAIN. HX LIFTING O/H DURING X-FIT. HX SURGERY 2002. FAM HX CA. 10 CC MRI CONTRAST INJECTED. 4 IMAGES COMPARISON: None. TECHNIQUE: The procedure was explained to the patient who understands the procedure the patient was placed in the supine position and a site was marked and the skin was prepped and draped in the usual sterile fashion. 1.2 minutes of fluoroscopy time was utilized and 4 images were obtained. FINDINGS: The needle was inserted into the right shoulder joint and approximately 4 cc of Isovue 300 contrast was intra-articular injected. This verify the intra-articular position of the needle tip after this 10 cc of diluted gadolinium contrast was intra-articularly injected and sequential images were obtained. No evidence of rotator cuff tear was identified. The patient will be sent to MRI imaging for additional MR imaging of the right shoulder for evaluation of the glenoid labrum. RAD/Arthrogram Shoulder w/ MRI IMPRESSION: No evidence of rotator cuff tear is identified. Electronically Signed: Baljit Reis, at 14:59 EST Tel , Service support ,
--- NOTE | 2019-05-02 10:04 | MRI_ITS ---
STUDY: MR RIGHT SHOULDER ARTHROGRAPHY REASON FOR EXAM: Right shoulder pain, weakness, limited range of motion, felt a pop, surgery 2002. TECHNIQUE: Standardized fat and water weighted pulse sequences were obtained in all 3 orthogonal planes after intra-articular instillation of dilute gadolinium. COMPARISON: Fluoroscopic image from arthrogram. FINDINGS: There is a small intermediate grade partial-thickness tear of the articular surface of the distal supraspinatus tendon (T1 coronal image 11) measuring 0.7 cm in length. Normal infraspinatus tendon. Normal subscapularis tendon. Normal teres minor tendon. Normal supraspinatus muscle. Normal infraspinatus muscle. Normal subscapularis muscle. Normal teres minor muscle. Normal glenohumeral articulation. Normal humeral head and visualized proximal humerus. Normal biceps labral complex with a small sublabral recess. Normal intracapsular long biceps tendon. There is contrast extravasation from the distal bicipital tendon sheath. Normal labrum. Normal capsulo- ligamentous complex. Normal rotator interval. There is mild acromioclavicular arthrosis without undersurface osteophytes (T2 sagittal image 11). There is a Type II morphology (curved), with a neutral orientation. There is minimal fluid in the subacromial-subdeltoid bursal fluid and postoperative micrometallic artifact in the anterior aspect of the bursa. Normal deltoid muscle. Normal trapezius muscle. MRI/Upper Ext Jt Only W/Contrast IMPRESSION: Small partial-thickness tear of the supraspinatus tendon. Mild acromioclavicular arthrosis. Electronically Signed: Bud Kim MD at 14:10 EST Tel , Service support ,
== END ==
PROVIDERS: PCP Family Medicine; Referring Provider Specialist; Visit Provider Specialist
DX: S43.491A Other sprain of right shoulder joint, initial encounter (principal)
CPT/HCPCS: 23350; 73222; 77002; A9575; Q9967

== ENCOUNTER → 2019-09-17 09:31 | Outpatient (CLI) | payer OTHER, SELFPAY ==
[2019-04-15 00:41] VITALS: BMI 44.6
--- NOTE | 2019-09-17 09:35 | RAD_ITS ---
STUDY: X-RAY - RIGHT KNEE REASON FOR EXAM: Female, 34 years old. Knee pain for 3 days. TECHNIQUE: 4 view(s) of the knee. COMPARISON: None. FINDINGS: Normal visualized distal femur. Normal visualized proximal tibia and fibula. Normal proximal tibiofibular articulation. There is no acute fracture, dislocation or destructive osseous pathology. Normal medial femorotibial compartment. Normal lateral femorotibial compartment. Normal patellofemoral articulation. The quadrant The soft tissue structures are unremarkable. RAD/Knee 4 or More Views IMPRESSION: Normal x-ray examination of the knee. Electronically Signed: Tariq Monk DO at 10:02 EDT Tel [phone], Service support ,
--- NOTE | 2019-09-17 09:35 | RAD_ITS ---
STUDY: X-RAY - LEFT KNEE REASON FOR EXAM: Female, 34 years old. Knee pain for 3 days. TECHNIQUE: 4 view(s) of the knee. COMPARISON: None. FINDINGS: Normal visualized distal femur. Normal visualized proximal tibia and fibula. Normal proximal tibiofibular articulation. There is no acute fracture, dislocation or destructive osseous pathology. Normal medial femorotibial compartment. Normal lateral femorotibial compartment. Normal patellofemoral articulation. There is no demonstrated joint effusion. The soft tissue structures are unremarkable. RAD/Knee 4 or More Views IMPRESSION: Normal x-ray examination of the knee. Electronically Signed: Tariq Monk DO at 10:02 EDT Tel [phone], Service support ,
== END ==
PROVIDERS: PCP Family Medicine; Referring Provider Family Medicine; Visit Provider Family Medicine
DX: M25.561 Pain in right knee (principal); M25.562 Pain in left knee
CPT/HCPCS: 73564

== ENCOUNTER → 2019-11-21 14:27 | Outpatient (CLI) | payer OTHER, SELFPAY ==
[2019-04-15 00:41] VITALS: BMI 44.6
--- NOTE | 2019-11-21 14:31 | RAD_ITS ---
STUDY: X-RAY CHEST REASON FOR EXAM: Female, 34 years old. SOB, CHEST PAIN -- PT WAS COVID-19 POSITIVE 3 WEEKS AGO, LINGERING SOB AND SHOOTING CHEST PAINS NOW TECHNIQUE: PA and lateral views of the chest. COMPARISON: Comparison is made with prior study dated 01/04/2019. FINDINGS: The lungs are clear and expanded. There is no demonstrated pleural abnormality. Normal size heart. Normal mediastinum and alpa. Normal visualized pulmonary arteries. Normal visualized aortic arch and descending thoracic aorta. Normal visualized thoracic spine. Normal visualized ribs, clavicles, and shoulders. There is no demonstrated abnormality of the visualized soft tissue structures of the upper abdomen. RAD/Chest PA and Lateral IMPRESSION: Normal x-ray examination of the chest. Electronically Signed: Noel Perrin, at 14:52 EDT , Service support ,
== END ==
PROVIDERS: PCP Family Medicine; Referring Provider Registered Nurse; Visit Provider Registered Nurse
DX: U07.1 COVID-19 (principal)
CPT/HCPCS: 71046

== ENCOUNTER 2019-12-04 23:03 | Emergency (ER) | payer OTHER, SELFPAY ==
[2019-04-15 00:41] VITALS: BMI 44.6
[2019-12-04 23:06] VITALS: BP 149/96; PULSE 72; RESP 18; TEMP 36.2; O2SAT 100; BMI 44.4
--- NOTE | 2019-12-04 23:12 | ED.VIS.GEN ---
History of Present Illness Chief Complaint: Chest Pain Informant: Patient Onset: Days, Weeks Context: Gradual Onset Timing: Intermittent Current Severity: Moderate Maximum Severity: Severe Narrative: Patient is a 34-year-old female who is otherwise healthy that presents to the emergency department for right-sided chest pain. Patient states that she was COVID positive about a month ago. She was really not having any significant symptoms. She states from time to time, she will get this right-sided chest pain that she describes a sharp and stabbing. There is a pleuritic component to it. She states that she will feel weak with generalized malaise. She is has a scant cough. She cannot find anything that makes his symptoms worse. She denies orthopnea, leg edema, night sweats, or weight loss. Prior similar symptoms: No Recent Illness/Hospitalization: Yes Past Medical History - Allergies and Home Meds Allergies/Adverse Reactions: Allergies hydromorphone HCl [From Dilaudid] Allergy (Verified 04/14/19 21:17) Hives Penicillins Allergy (Verified 04/14/19 21:17) Rash Primary Care Physician: Papo Guido MD [Primary Care Provider] - Prior records reviewed: Yes Past Medical History: None Surgical History: appendectomy, cholecystectomy Smoking Status: Never smoker - Family History Maternal Family History: Reports: No pertinent history Review of Systems General: Denies: Chills, Fever, Sweats Eyes: Denies: Visual changes - bilaterally, Diplopia ENT: Denies: Rhinorrhea, Sore throat Cardiovascular: Reports: Chest pain. Denies: Palpitations Respiratory: Reports: Dyspnea. Denies: Cough, Dyspnea on exertion Gastrointestinal: Denies: Abdominal pain, Nausea, Vomiting, Diarrhea, Melena, Hematochezia Genitourinary: Denies: Dysuria, Hematuria, Frequency Musculoskeletal: Denies: Back pain, Extremity Pain Skin: Denies: Rash, Wounds Neurological: Denies: Headache, Weakness, Numbness Physical Exam Vital Signs/Narrative: Vital Signs Temp Pulse Resp BP Pulse Ox 12/04/19 23:06 97.2 F L 72 18 149/96 H 100 Inital Vital Signs reviewed: Yes General: Well nourished, Well developed, No Acute Distress Head: Normocephalic, Atraumatic Eyes: Perrl, EOMI ENT: Moist mucous membranes, No rhinorrhea Neck: Supple, Nontender Cardiovascular: Regular rate, Regular rhythm, No murmurs Respiratory: No distress, CTA bilaterally, Chest nontender Abdomen: Soft, Nontender, Nondistended, Normal bowel sounds Back: Nontender, Normal Inspection Extremities: Nontender, No edema Skin: Normal color, No rash Neurological: Alert, Oriented x3, Cranial nerves II-XII grossly intact, Normal Strength, Normal Sensation Psychological: Normal affect, Normal Mood Diagnostic/Tx/Re-eval Clinical Impression(s) from Imaging Studies Chest CTA 12/05/19 23:14 IMPRESSION: No pulmonary embolus detected. Individualized dose optimization techniques were used for this CT. at 0250 Reported and signed by: Hodan Hallman MD Electronically Signed: Hodan Hallman MD at 2:50 EDT Tel , Service support , Abnormal Lab Results 12/04/19 12/04/19 12/05/19 23:25 23:25 00:06 WBC 12.6 H RBC 4.34 Hgb 12.4 Hct 37.5 MCV 86.4 MCH 28.6 MCHC 33.1 RDW Std Deviation 39.5 RDW Coeff of Bibiana 12.5 Plt Count 382 MPV 10.4 Immature Gran % (Auto) 0.400 Neut % (Auto) 56.1 Lymph % (Auto) 31.7 [place] % (Auto) 6.4 Eos % (Auto) 4.7 Baso % (Auto) 0.7 Absolute Neuts (auto) 7.0 Absolute Lymphs (auto) 3.98 Nucleated RBC % 0 Sodium 139 Potassium 3.7 Chloride 110 H Carbon Dioxide 23.0 Anion Gap 6 BUN 12 Creatinine 0.78 Estim Creat Clear Calc 90.58 Est GFR (MDRD) Af Amer 109 Est GFR (MDRD) Non-Af 90 BUN/Creatinine Ratio 15.5 Glucose 112 H Calcium 8.4 L Total Bilirubin 0.20 AST 22 ALT 28 Alkaline Phosphatase 49 Troponin I < 0.015 Total Protein 7.2 Albumin 3.4 Globulin 3.8 Albumin/Globulin Ratio 0.9 Urine Color Urine Clarity Urine pH Ur Specific Bells Urine Protein Urine Glucose (UA) Urine Ketones Urine Occult Blood Urine Nitrite Urine Bilirubin Urine Urobilinogen Ur Leukocyte Esterase Urine RBC Urine WBC Ur Squamous Epith Cells Urine Bacteria Urine Mucus Urine Test Negative 12/05/19 00:06 WBC RBC Hgb Hct MCV MCH MCHC RDW Std Deviation RDW Coeff of Bibiana Plt Count MPV Immature Gran % (Auto) Neut % (Auto) Lymph % (Auto) [place] % (Auto) Eos % (Auto) Baso % (Auto) Absolute Neuts (auto) Absolute Lymphs (auto) Nucleated RBC % Sodium Potassium Chloride Carbon Dioxide Anion Gap BUN Creatinine Estim Creat Clear Calc Est GFR (MDRD) Af Amer Est GFR (MDRD) Non-Af BUN/Creatinine Ratio Glucose Calcium Total Bilirubin AST ALT Alkaline Phosphatase Troponin I Total Protein Albumin Globulin Albumin/Globulin Ratio Urine Color Yellow Urine Clarity Clear Urine pH 6.0 Ur Specific Bells 1.020 Urine Protein Negative Urine Glucose (UA) Normal Urine Ketones Negative Urine Occult Blood 10 H Urine Nitrite Negative Urine Bilirubin Negative Urine Urobilinogen Normal Ur Leukocyte Esterase Negative Urine RBC 5-10 SEEN Urine WBC 0 SEEN Ur Squamous Epith Cells 0-5 SEEN Urine Bacteria 0 SEEN Urine Mucus 0 SEEN Urine Test - Rhythm Strip Rhythm Strip: Sinus Rhythm Rate: 80 Ectopy: None - EKG Initial EKG Interpretation: Sinus Rhythm, No Acute Injury Pattern Prior: Unchanged - Medical Decision Making The patient presents to the emergency department with intermittent right-sided chest pain. She states is worse when she breathes or moves. She did have COVID about a month ago. She states she is been experiencing the pain for the past 3 weeks. She did see her primary care who ordered an x-ray which was unremarkable. She states today, she does feel like she cannot catch her breath. EKG was obtained. There is no evidence of acute ischemia. Screening labs including cardiac enzymes were negative. Given her recent infection, I did want to rule out thrombotic disease. The patient underwent CTA. This was negative for acute pulmonary embolus. There was no pneumothorax, pulmonary disease, or loculated effusion. I do suspect that her symptoms may be secondary to pleurisy. Given her benign work-up I do feel that she is safe for outpatient follow-up. She is comfortable with this plan of care. Impression 1. Pleurisy 2. Recent COVID-19 infection ED Disposition - Plan for ED Patient: Instructions: ED Chest Pain Pleurisy Prescriptions: Prednisone [Deltasone] 60 mg PO DAILY #12 tab Prescription Printed Referrals: Papo Guido MD [Primary Care Provider] -
--- NOTE | 2019-12-04 23:13 | EKG12_ITS ---
Test Reason : CP Blood Pressure : / mmHG Vent. Rate : 074 BPM Atrial Rate : 074 BPM P-R Int : 148 ms QRS Dur : 086 ms QT Int : 368 ms P-R-T Axes : 017 023 025 degrees QTc Int : 408 ms Normal sinus rhythm Normal ECG Confirmed by ERIC MENDIETA, SAMY ([id number]), manager editorial ESTEPHANIA COLLINS ([id number]) on 12/06/2019 11:32:13 AM Referred By: OLIVIA Confirmed By:SAMY REYES MD
[2019-12-04 23:35] LABS: Absolute Lymphocyte Count 3.98 X10^3/uL (0.83-4.51); Basophil# 0.09 X10^3/uL; Basophil% 0.7 % (0-1); Eosinophil# 0.59 X10^3/uL; Eosinophils% 4.7 % (0-5); Hematocrit 37.5 % (37-47); Hemoglobin 12.4 g/dL (12.0-15.0); Lymphocyte # 3.98 X10^3/ul (4.0); Lymphocyte % 31.7 % (19-41); Mean Corp Hgb Conc 33.1 g/dL (32-36); Mean Corpuscular Hgb 28.6 pg (27.0-32.0); Mean Corpuscular Volume 86.4 fL (81-99); Mean Platelet Vol. 10.4 fl (6.2-12.0); Monocyte% 6.4 % (0-10); NRBC Flagged by Analyzer 0 % (0-5); Neutrophil # 7.04 X10^3/uL (2.7-7.7); Neutrophil % 56.1 % (47-70); Platelet Count 382 K/mm3 (150-450); RBC Distribution Width CV 12.5 % (11.6-14.6); RBC Distribution Width SD 39.5 fl (35.1-43.9); Red Blood Count 4.34 M/mm3 (4.2-5.4); White Blood Count 12.6 K/mm3 (4.4-11.0)
[2019-12-04 23:36] VITALS: PULSE 74; RESP 18; O2SAT 99
[2019-12-04 23:39] VITALS: BP 124/53
[2019-12-04] MEDS: Ketorolac 15 MG/ML Vial IV (23:48)
[2019-12-04] MEDS: 0.9% Normal Saline 1,000 ML 1000 ML IV (23:48)
[2019-12-04 23:56] LABS: ALB/GLOB Ratio 0.9 RATIO (0.9-2.4); AST(SGOT) 22 U/L (15-37); Alanine Aminotransfer ALT/SGPT 28 U/L (13-56); Albumin, Serum 3.4 g/dL (3.2-5.0); Alkaline Phosphatase 49 U/L (45-117); Anion Gap 6 (5-15); BUN 12 mg/dL (7-18); BUN/Creat Ratio 15.5 RATIO (10-20); Calcium,Total 8.4 mg/dL (8.5-10.1); Chloride 110 mmol/L (98-107); Creatinine, Serum 0.78 mg/dL (0.55-1.02); EST Glomerular Filtration Rate 90 mL/min (>60); Est Glom Filt Rate - Afr Amer 109 mL/min (>60); Estimated Creatinine Clearance 90.58 ml/min; Globulin 3.8 g/dL (2.2-4.2); Glucose 112 mg/dL (74-106); Potassium 3.7 mmol/L (3.5-5.1); Protein, Total 7.2 g/dL (6.4-8.2); Sodium Level 139 mmol/L (136-145)
[2019-12-05 00:13] LABS: Bacteria 0 SEEN /hpf (None Seen); Color, Urine Yellow (Yellow); Glucose, Dipstick Normal (Normal); Ketone-Dipstick Negative (Negative); Leukocyte Esterase-Dipstick Negative /ul (Negative); Mucous, Urine 0 SEEN /hpf (<or=2+); Nitrite-Dipstick Negative (Negative); Occult Blood-Urine 10 /ul (Negative); Protein-Dipstick Negative (Negative); Urine Bilirubin Dipstick Negative (Negative); Urine Clarity Clear (Clear); Urine Urobilinogen Normal (Normal); White Blood Cells 0 SEEN /hpf (0-5)
[2019-12-05 00:16] LABS: Internal QC Validated? YES +Cl - CLEAR BKGD; Pregnancy, Urine Negative Negative
[2019-12-05 00:20] LABS: Red Blood Cells-Urine 5-10 SEEN /hpf (0-5); Squamous Epithelial Cells - UA 0-5 SEEN /hpf (5-10)
[2019-12-05 00:30] VITALS: PULSE 67; RESP 18; O2SAT 98
[2019-12-05 01:18] VITALS: BP 130/74; PULSE 77; RESP 18; TEMP 36.9; O2SAT 100
[2019-12-05] MEDS: predniSONE 20 MG Tablet 60 MG PO (03:08)
[2019-12-05 03:11] VITALS: BP 146/69; PULSE 66; RESP 28; O2SAT 96
--- NOTE | 2019-12-05 23:14 | CT_ITS ---
HISTORY: MID STERNAL CP RADIATES AROUND TO RIGHT CHEST SINCE 2099, PT COVID + ON 10-31-19, WEAKNESS AND COUGH NOW ADDITIONAL HISTORY: None provided. EXAMINATION/TECHNIQUE: CTA Chest WO/W Contrast Injection PULMONARY EMBOLISM PROTOCOL: 2D and 3D images to include MIP and/or volume rendered images CONTRAST: IV 100mL Isovue-370 Number of images including paperwork: [id number] A radiation dose optimization technique was used for this scan. COMPARISON: 09/21/2014 FINDINGS: PULMONARY ARTERIES: No pulmonary arterial filling defects. AORTA AND GREAT VESSELS: Unremarkable. HEART/PERICARDIUM: Unremarkable. MEDIASTINUM: Unremarkable. ADENOPATHY: No pathologic appearing adenopathy. THYROID: Unremarkable visualized portions. LUNG PARENCHYMA: No consolidation or mass. Minimal basilar atelectasis. Small right lung subpleural densities series 2 image 128 and image 79, unchanged compared to 2014 and consistent with benign findings for which no follow-up is warranted. PLEURAL SPACES: Unremarkable. UPPER ABDOMEN: Unremarkable. OSSEOUS AND SOFT TISSUE STRUCTURES: No acute skeletal findings. CT/CTA Chest W/WO Contrast IMPRESSION: No pulmonary embolus detected. Individualized dose optimization techniques were used for this CT. at 0250 Reported and signed by: Hodan Hallman MD Electronically Signed: Hodan Hallman MD at 2:50 EDT Tel , Service support ,
== END 2019-12-05 03:12 | disposition home or self-care (01) ==
PROVIDERS: Emergency Provider Emergency Medicine; PCP Family Medicine
DX: R09.1 Pleurisy (principal); Z86.19 Personal history of other infectious and parasitic diseases
CPT/HCPCS: 71275; 80053; 81001; 81025; 84484; 85025; 93005; 96361; 96374; 99285; J7030; Q9967; A4216

== ENCOUNTER → 2019-12-20 12:42 | Outpatient (CLI) | payer OTHER, SELFPAY ==
[2019-12-04 23:06] VITALS: BMI 44.4
[2019-12-20 15:44] LABS: Hematocrit 41.4 % (37-47); Hemoglobin 13.1 g/dL (12.0-15.0); Mean Corp Hgb Conc 31.6 g/dL (32-36); Mean Corpuscular Hgb 28.1 pg (27.0-32.0); Mean Corpuscular Volume 88.7 fL (81-99); Mean Platelet Vol. 10.5 fl (6.2-12.0); Platelet Count 397 K/mm3 (150-450); RBC Distribution Width CV 12.9 % (11.6-14.6); RBC Distribution Width SD 41.9 fl (35.1-43.9); Red Blood Count 4.67 M/mm3 (4.2-5.4); White Blood Count 10.2 K/mm3 (4.4-11.0)
[2019-12-20 15:58] LABS: ALB/GLOB Ratio 0.9 RATIO (0.9-2.4); AST(SGOT) 24 U/L (15-37); Alanine Aminotransfer ALT/SGPT 41 U/L (13-56); Albumin, Serum 3.5 g/dL (3.2-5.0); Alkaline Phosphatase 53 U/L (45-117); Anion Gap 6 (5-15); BUN 7 mg/dL (7-18); BUN/Creat Ratio 8.9 RATIO (10-20); Calcium,Total 8.8 mg/dL (8.5-10.1); Chloride 105 mmol/L (98-107); Creatinine, Serum 0.79 mg/dL (0.55-1.02); EST Glomerular Filtration Rate 88 mL/min (>60); Est Glom Filt Rate - Afr Amer 107 mL/min (>60); Globulin 3.8 g/dL (2.2-4.2); Glucose 88 mg/dL (74-106); Magnesium 2.2 mg/dL (1.6-2.6); Potassium 3.9 mmol/L (3.5-5.1); Protein, Total 7.3 g/dL (6.4-8.2); Sodium Level 138 mmol/L (136-145)
[2019-12-21 08:08] LABS: Absolute Lymphocyte Count 2.73 X10^3/uL (0.83-4.51); Basophil# 0.11 X10^3/uL; Basophil% 1.1 % (0-1); Eosinophil# 0.53 X10^3/uL; Eosinophils% 5.3 % (0-5); Lymphocyte # 2.73 X10^3/ul (4.0); Lymphocyte % 27.3 % (19-41); Monocyte# 0.56 X10^3/uL; Monocyte% 5.6 % (0-10); NRBC Flagged by Analyzer 0 % (0-5); Neutrophil # 6.01 X10^3/uL (2.7-7.7)
== END ==
PROVIDERS: PCP Family Medicine; Referring Provider Registered Nurse; Visit Provider Registered Nurse
DX: U07.1 COVID-19 (principal)
CPT/HCPCS: 36415; 80053; 83735; 85025; 85027

== ENCOUNTER → 2020-01-31 15:52 | Outpatient (CLI) | payer OTHER, SELFPAY ==
[2020-02-01 07:11] LABS: SARS-COV-2 TOTAL ABS Nonreactive (Nonreactive)
== END ==
PROVIDERS: PCP Family Medicine; Referring Provider Family Medicine; Visit Provider Nurse Practitioner Adult Health
DX: U07.1 COVID-19 (principal)
CPT/HCPCS: 36415; 86769

== ENCOUNTER → 2020-02-08 | Outpatient (CLI) | payer OTHER, SELFPAY | END | disposition home or self-care (01) | PROVIDERS: PCP Family Medicine; Referring Provider Family Medicine; Visit Provider Family Medicine | DX: U07.1 COVID-19 (principal) | CPT/HCPCS: 87635; U0003 ==

== ENCOUNTER 2020-02-27 12:15 | Emergency (ER) | payer OTHER, SELFPAY ==
[2020-02-27 12:16] VITALS: BP 145/83; PULSE 79; RESP 16; TEMP 35.8; O2SAT 97; BMI 41.5
--- NOTE | 2020-02-27 12:49 | EKG12_ITS ---
Test Reason : SOB Blood Pressure : / mmHG Vent. Rate : 067 BPM Atrial Rate : 067 BPM P-R Int : 144 ms QRS Dur : 086 ms QT Int : 396 ms P-R-T Axes : 011 019 006 degrees QTc Int : 418 ms Normal sinus rhythm with sinus arrhythmia Normal ECG Confirmed by MITZY MENDIETA, OMAYRA ([id number]), sound editor ESTEPHANIA COLLINS ([id number]) on 02/29/2020 10:46:57 AM Referred By: DC Confirmed By:OMAYRA FORRESTER MD
[2020-02-27 13:30] VITALS: O2SAT 99
--- NOTE | 2020-02-27 13:39 | RAD_ITS ---
STUDY: X-RAY CHEST REASON FOR EXAM: Female, 34 years old. SOB, DIZZINESS, OFF BALANCE LAST NIGHT, NAUSEA. +COVID 3 WEEKS AGO. -- HX ASTHMA TECHNIQUE: Single AP portable view of the chest. COMPARISON: Comparison is made with prior study dated 11/21/2019. FINDINGS: EKG electrodes are seen. The lungs are clear and expanded. There is no demonstrated pleural abnormality. Normal size heart. Normal mediastinum and alpa. Normal visualized pulmonary arteries. Normal visualized aortic arch and descending thoracic aorta. Normal visualized thoracic spine. Normal visualized ribs, clavicles, and shoulders. There is no demonstrated abnormality of the visualized soft tissue structures of the upper abdomen. RAD/Chest 1 View (Portable) IMPRESSION: Normal x-ray examination of the chest. Electronically Signed: Noel Perrin, at 14:10 EST , Service support ,
[2020-02-27] MEDS: Ondansetron 4 MG/2 ML Vial IV (13:45)
--- NOTE | 2020-02-27 13:55 | ED.VISSUMM ---
- ER Visit Summary Date of Service: 02/27/20 Chief Complaint: Shortness of breath History of Present Illness: The patient is a 34 F with shortness of breath over the past week. She was diagnosed with COVID-19 2 weeks ago. She has been taking prednisone. She was doing better, but her symptoms have worsened over the last few days. She has shortness of breath, cough, dizziness, nausea, near syncope. No history of DVT or PE. No travel or leg swelling. No history of cardiac, liver, diabetes, or immune suppression diseases. She does have a history of sports induced asthma. Non-smoker. No hormone medications. Physical Examination: Afebrile and vital signs unremarkable. Head and neck unremarkable. Heart regular rate and rhythm. Lungs clear. Extremities nontender with no edema. Skin appears normal. Test Results: Pending Emergency Department Course and Treatment: I suspect this is continued symptoms of her Covid infection. Will check chest x-ray and labs. Her EKG showed sinus rhythm at a rate of 67. Her only risk factor is sports induced asthma and her weight, otherwise she is low risk. X-ray was unremarkable. Patient was 97 to 100% on room air with ambulation. Labs are still pending, she was a difficult stick. The oncoming physician will check the results of the labs. If they were unremarkable, she will be discharged home. This was discussed with the patient. Treatment Plan: As above Disposition: Pending Impression: COVID-19 infection This note was generated with [employer] dictation software. It may contain incorrect words, spelling, and punctuation that were not noted in review of the chart prior to signing ED Disposition - Plan for ED Patient: Referrals: Papo Guido MD [Primary Care Provider] -
[2020-02-27 14:12] VITALS: PULSE 56; RESP 20; O2SAT 98
--- NOTE | 2020-02-27 14:43 | ED.DEP ---
ED Disposition - Plan for ED Patient: Instructions: Coronavirus Disease 2019 (COVID-19): Caring for Yourself or Others Referrals: Papo Guido MD [Primary Care Provider] -
[2020-02-27 15:08] LABS: Absolute Lymphocyte Count 4.37 X10^3/uL (0.83-4.51); Absolute Neutrophil Count 12.8 X10^3/uL (2.0-7.7); Basophil# 0.07 X10^3/uL; Basophil% 0.4 % (0-1); Eosinophil# 0.14 X10^3/uL; Eosinophils% 0.7 % (0-5); Hematocrit 40.7 % (37-47); Hemoglobin 12.7 g/dL (12.0-15.0); Lymphocyte # 4.37 X10^3/ul (4.0); Mean Corp Hgb Conc 31.2 g/dL (32-36); Mean Corpuscular Hgb 28.1 pg (27.0-32.0); Mean Platelet Vol. 10.2 fl (6.2-12.0); Monocyte# 1.47 X10^3/uL; Monocyte% 7.7 % (0-10); NRBC Flagged by Analyzer 0 % (0-5); Neutrophil # 12.77 X10^3/uL (2.7-7.7); Neutrophil % 67.3 % (47-70); Platelet Count 394 K/mm3 (150-450); RBC Distribution Width CV 13.2 % (11.6-14.6); RBC Distribution Width SD 42.6 fl (35.1-43.9); Red Blood Count 4.52 M/mm3 (4.2-5.4)
[2020-02-27 15:14] VITALS: O2SAT 97
[2020-02-27 16:27] LABS: ALB/GLOB Ratio 0.8 RATIO (0.9-2.4); AST(SGOT) 13 U/L (15-37); Alanine Aminotransfer ALT/SGPT 34 U/L (13-56); Albumin, Serum 2.6 g/dL (3.2-5.0); Alkaline Phosphatase 45 U/L (45-117); Anion Gap 5 (5-15); BUN 13 mg/dL (7-18); BUN/Creat Ratio 23.6 RATIO (10-20); Calcium,Total 7.1 mg/dL (8.5-10.1); Chloride 116 mmol/L (98-107); Creatinine, Serum 0.55 mg/dL (0.55-1.02); EST Glomerular Filtration Rate 133 mL/min (>60); Est Glom Filt Rate - Afr Amer 161 mL/min (>60); Estimated Creatinine Clearance 128.47 ml/min; Globulin 3.1 g/dL (2.2-4.2); Glucose 67 mg/dL (74-106); Potassium 3.2 mmol/L (3.5-5.1); Protein, Total 5.7 g/dL (6.4-8.2); Sodium Level 145 mmol/L (136-145)
[2020-02-27 16:59] VITALS: BP 123/76; PULSE 60; RESP 17; O2SAT 97
== END 2020-02-27 16:59 | disposition home or self-care (01) ==
LOC: ED 13:03
PROVIDERS: Emergency Provider Emergency Medicine; PCP Family Medicine
DX: U07.1 COVID-19 (principal)
CPT/HCPCS: 71045; 80053; 84484; 85025; 93005; 96361; 96374; 99285; J2405

== ENCOUNTER → 2021-02-11 14:57 | Outpatient (CLI) | payer OTHER, SELFPAY ==
[2021-02-11 15:15] LABS: Absolute Lymphocyte Count 2.78 X10^3/uL (0.83-4.51); Absolute Neutrophil Count 8.2 X10^3/uL (2.0-7.7); Basophil# 0.11 X10^3/uL; Basophil% 0.9 % (0-1); Eosinophil# 0.36 X10^3/uL; Hematocrit 39.9 % (37-47); Hemoglobin 13.1 g/dL (12.0-15.0); Lymphocyte # 2.78 X10^3/ul (0.83-4.51); Lymphocyte % 22.9 % (19-41); Mean Corp Hgb Conc 32.8 g/dL (32-36); Mean Corpuscular Hgb 28.7 pg (27.0-32.0); Mean Corpuscular Volume 87.3 fL (81-99); Mean Platelet Vol. 9.8 fl (6.2-12.0); Monocyte# 0.69 X10^3/uL; Monocyte% 5.7 % (0-10); NRBC Flagged by Analyzer 0 % (0-5); Neutrophil # 8.16 X10^3/uL (2.7-7.7); Platelet Count 378 K/mm3 (150-450); RBC Distribution Width CV 12.5 % (11.6-14.6); Red Blood Count 4.57 M/mm3 (4.2-5.4); White Blood Count 12.2 K/mm3 (4.4-11.0)
[2021-02-11 15:56] LABS: Thyroid Stim Hormone (TSH) 1.29 uIU/mL (0.358-3.74)
[2021-02-14 10:19] LABS: HPV APTIMA, High Risk Negative (Negative)
== END ==
PROVIDERS: PCP Family Medicine; Referring Provider Obstetrics & Gynecology; Visit Provider Obstetrics & Gynecology
DX: N93.9 Abnormal uterine and vaginal bleeding, unspecified (principal); Z01.419 Encounter for gynecological examination (general) (routine) without abnormal findings
CPT/HCPCS: 36415; 84443; 85025; 87624; 88175; G0145

== ENCOUNTER 2021-04-08 08:18 | Emergency (ER) | payer OTHER, SELFPAY ==
[2021-04-08 08:19] VITALS: BP 135/79; PULSE 73; RESP 16; TEMP 35.8; O2SAT 100; BMI 40.7
[2021-04-08 08:25] VITALS: BP 135/79; PULSE 73; RESP 16; TEMP 35.8; O2SAT 100
--- NOTE | 2021-04-08 08:36 | EX.ED.DYSGE1 ---
HPI History of Present Illness Chief Complaint: General Illness Informant: patient Narrative Narrative: 35-year-old female presenting to the emergency room nausea vomiting. Patient states that Thursday she began to experience nausea and upper abdominal pain described as burning. She states that yesterday she had a episode of painless bright red blood with her formed stool. She reports no fever. No one else sick at home. She had Covid in February. She states that this morning she was taking her children to daycare when she experienced vomiting and near syncope. PFSH PFSH Medical History Inactive TB Home Medications ondansetron 4 mg PO Q6H PRN PRN #20 tab 04/08/21 [Rx Last Taken Unknown] Allergy/AdvReac Type Severity Reaction Status Date / Time hydromorphone HCl Allergy Hives Verified 04/08/21 08:20 [From Dilaudid] Penicillins Allergy Rash Verified 04/08/21 08:20 Surgical History H/O: knee surgery History of appendectomy History of foot surgery History of shoulder surgery S/P cholecystectomy Social History Smoking Status: Never smoker alcohol intake: current substance use type: does not use what type of physical activity do you participate in: walking seatbelt use: always do you feel safe at home: Yes additional social history: Khadra MORALES ED Constitutional Constitutional ED: Denies chills, fever(s) or weight loss Eyes Eyes: Denies change in vision or diplopia ENT ENT ED: Denies ear pain, rhinorrhea or sore throat Cardiovascular Cardiovascular: Denies chest pain, orthopnea, palpitations or racing heartbeat Respiratory/Chest Respiratory/Chest: Denies cough, dyspnea or orthopnea Gastrointestinal Gastrointestinal: Reports abdominal pain, nausea, vomiting and other Details: Bright red blood per rectum x1 ; Denies diarrhea Genitourinary Genitourinary ED: Denies dysuria, hematuria or urinary frequency Musculoskeletal Musculoskeletal: Denies arthralgias or myalgias Integumentary Denies abscess or rash Neurologic Neurologic: Denies headache(s) or weakness Psychiatric Psychiatric: Denies anxiety, depression, suicidal ideation or suicidal thoughts Endocrine Endocrinology: Denies polydipsia, polyphagia or polyuria Allergic/Immunologic Allergic/Immunologic ED: Denies mouth swelling, tongue swelling or urticaria EXAM Physical Exam Const Vital Signs: 04/08/21 08:19 04/08/21 08:25 Temperature 96.5 F L 96.5 F L Temperature Source Temporal Temporal Pulse Rate 73 73 Respiratory Rate 16 16 Respiratory Effort Normal Non-Labored Respiratory Pattern Normal Blood Pressure 135/79 H 135/79 H Blood Pressure Mean 97 97 Pulse Ox 100 100 Oxygen Delivery Method Room Air Room Air Positive well nourished, well developed and obese General Appearance ED: well developed Nutritional Appearance: obese HEENT Reports normocephalic, head/scalp atraumatic, TM's clear and moist mucous membranes Negative for trauma Tympanic Membrane ED: Yes TM's clear Eyes PERRL and EOMs intact bilaterally Neck no lymphadenopathy, supple and no JVD Resp normal respiratory effort and clear to auscultation bilaterally Cardio regular rate, regular rhythm and no murmurs GI normal to inspection, nondistended, normoactive bowel sounds and non-tender Palpation: soft Back/Spine no CVA tenderness and normal ROM Extremity normal to inspection General Extremety ED: Negative for edema General Extremity: Negative for edema Neuro oriented x3 and CN's II-XII intact bilaterally Sensorium / Orientation: alert Motor Exam: strength 5/5 throughout Psych mental status grossly normal Mood & Affect: Negative for depressed or tearful Skin no rashes or lesions noted and no wounds MDM MDM MDM Narrative Medical decision making narrative: Basic blood work was obtained and negative. test is negative. Patient received fluids and Zofran. I will write a prescription for Zofran and have her return if worsening or concerns. Lab Data Attestation: I reviewed the patient's lab results. Labs: Laboratory Results - last 24 hr 04/08/21 04/08/21 04/08/21 09:25 09:25 09:25 WBC 10.2 RBC 4.71 Hgb 13.5 Hct 42.2 MCV 89.6 MCH 28.7 MCHC 32.0 RDW Std Deviation 42.7 RDW Coeff of Bibiana 13.0 Plt Count 391 MPV 10.0 Immature Gran % (Auto) 0.500 Neut % (Auto) 70.1 H Lymph % (Auto) 19.7 [place] % (Auto) 5.7 Eos % (Auto) 3.2 Baso % (Auto) 0.8 Absolute Neuts (auto) 7.2 Absolute Lymphs (auto) 2.01 Nucleated RBC % 0 Sodium 139 Potassium 3.8 Chloride 109 H Carbon Dioxide 25.0 Anion Gap 5 BUN 8 Creatinine 0.78 Estim Creat Clear Calc 89.72 Est GFR (MDRD) Af Amer 107 Est GFR (MDRD) Non-Af 88 BUN/Creatinine Ratio 10.2 Glucose 91 Calcium 8.2 L Total Bilirubin 0.40 AST 15 ALT 25 Alkaline Phosphatase 43 L Total Protein 6.9 Albumin 3.4 Globulin 3.5 Albumin/Globulin Ratio 1.0 Lipase 81 Serum , Qual NEGATIVE Discharge Plan Triage Chief Complaint: General Illness ED Provider: Levi Alonso Dx/Rx/DC Orders Clinical Impression: Vomiting, Near syncope Instructions: ED Near-Fainting- Vagal Reaction, ED Vomiting (Adult) Prescriptions: New ondansetron [ondansetron] 4 MG tablet 4 mg PO Q6H PRN PRN (Reason: Nausea) Qty: 20 RF: 0 Primary Care Provider: Papo Guido Referrals: Papo Guido MD [Primary Care Provider] - As Needed Disposition Disposition: Home, Self Care
[2021-04-08 09:33] LABS: Absolute Lymphocyte Count 2.01 X10^3/uL (0.83-4.51); Absolute Neutrophil Count 7.2 X10^3/uL (2.0-7.7); Basophil# 0.08 X10^3/uL; Basophil% 0.8 % (0-1); Eosinophil# 0.33 X10^3/uL; Eosinophils% 3.2 % (0-5); Hematocrit 42.2 % (37-47); Hemoglobin 13.5 g/dL (12.0-15.0); Lymphocyte # 2.01 X10^3/ul (0.83-4.51); Lymphocyte % 19.7 % (19-41); Mean Corpuscular Hgb 28.7 pg (27.0-32.0); Mean Corpuscular Volume 89.6 fL (81-99); Monocyte# 0.58 X10^3/uL; Monocyte% 5.7 % (0-10); NRBC Flagged by Analyzer 0 % (0-5); Neutrophil # 7.15 X10^3/uL (2.7-7.7); Neutrophil % 70.1 % (47-70); Platelet Count 391 K/mm3 (150-450); RBC Distribution Width SD 42.7 fl (35.1-43.9); Red Blood Count 4.71 M/mm3 (4.2-5.4); White Blood Count 10.2 K/mm3 (4.4-11.0)
[2021-04-08 09:43] LABS: Internal QC Validated? YES +Cl - CLEAR BKGD; Pregnancy, Serum, hCG Quali. NEGATIVE Negative
[2021-04-08 09:50] LABS: AST(SGOT) 15 U/L (15-37); Alanine Aminotransfer ALT/SGPT 25 U/L (13-56); Albumin, Serum 3.4 g/dL (3.2-5.0); Alkaline Phosphatase 43 U/L (45-117); Anion Gap 5 (5-15); BUN 8 mg/dL (7-18); BUN/Creat Ratio 10.2 RATIO (10-20); Calcium,Total 8.2 mg/dL (8.5-10.1); Chloride 109 mmol/L (98-107); Creatinine, Serum 0.78 mg/dL (0.55-1.02); EST Glomerular Filtration Rate 88 mL/min (>60); Est Glom Filt Rate - Afr Amer 107 mL/min (>60); Estimated Creatinine Clearance 89.72 ml/min; Globulin 3.5 g/dL (2.2-4.2); Glucose 91 mg/dL (74-106); Lipase 81 U/L (73-393); Potassium 3.8 mmol/L (3.5-5.1); Protein, Total 6.9 g/dL (6.4-8.2); Sodium Level 139 mmol/L (136-145)
== END 2021-04-08 10:20 | disposition home or self-care (01) ==
PROVIDERS: Emergency Provider Emergency Medicine; PCP Family Medicine; Visit Provider Emergency Medicine
DX: R11.2 Nausea with vomiting, unspecified (principal); Z68.41 Body mass index [BMI] 40.0-44.9, adult; R55 Syncope and collapse; E66.9 Obesity, unspecified
CPT/HCPCS: 80053; 83690; 84703; 85025; 99283

== ENCOUNTER → 2022-01-08 | Outpatient (CLI) | payer OTHER, SELFPAY ==
--- NOTE | 2022-01-08 16:32 | US_ITS ---
EXAM: US PELVIS TRANSVAGINAL CLINICAL INDICATION: RLQ PAIN -- BILAT TECHNIQUE: Transvaginal pelvic ultrasound was performed with grayscale and color Doppler imaging. Transvaginal imaging was used for better evaluation of the endometrium and adnexa. This report was created using [employer] report generation technology. COMPARISON: None. FINDINGS: UTERUS/CERVIX: Uterus is normal in size and echogenicity measuring 9.4 x 4.4 x 5.3 cm. Endometrial thickness is normal, measuring 7 mm. There is no uterine mass. RIGHT OVARY: Right ovary is normal in size and echogenicity measuring 3.5 x 1.6 x 2.5 cm. No mass or dominant cyst. Venous flow is documented. LEFT OVARY: Left ovary is normal in size and echogenicity measuring 2 x 3.2 x 1.8 cm. No mass or dominant cyst. Arterial and venous flow are documented. FREE FLUID: None. BLADDER: Empty bladder which cannot be evaluated with this probe. US/Transvaginal Non- IMPRESSION: No acute findings in the pelvis. Electronically Signed: Alba Loyd MD at 19:00 EDT Reading Location ID and State: [id number] / Tel , Service support ,
== END | disposition home or self-care (01) ==
PROVIDERS: PCP Family Medicine; Referring Provider Family Medicine; Visit Provider Family Medicine
DX: R10.31 Right lower quadrant pain (principal)
CPT/HCPCS: 76830

== ENCOUNTER → 2022-04-08 | Outpatient (CLI) | payer OTHER, SELFPAY ==
--- NOTE | 2022-04-08 16:42 | RAD_ITS ---
INDICATION: ASTHMA EXAMINATION/TECHNIQUE: X-RAY - XR Chest 2 Views COMPARISON: 02/27/2020 FINDINGS: LIFE-SUPPORT AND LINES: 1. None HEART AND VESSELS: The cardiac silhouette, pulmonary vasculature have normal appearance. No evidence of congestive failure. LUNGS AND PLEURAL SPACES: Lungs are clear. No focal infiltrate, consolidation or effusions. No evidence of pneumothorax. There is mild crowding of bronchovascular markings contributed by shallow inspiration. MEDIASTINUM AND HILAR REGIONS: No masses adenopathy noted. No areas of calcification. Visualized upper airway is normal in position. BONY ELEMENTS: No acute bony changes noted. RAD/Chest PA and Lateral IMPRESSION: 1. No evidence of acute cardiopulmonary process Electronically Signed: Jose Luis Barakat MD at 17:03 EST ,
== END | disposition home or self-care (01) ==
LOC: MTRAD 16:41
PROVIDERS: PCP Family Medicine; Referring Provider Family Medicine; Visit Provider Family Medicine
DX: J45.901 Unspecified asthma with (acute) exacerbation (principal)
CPT/HCPCS: 71046

== ENCOUNTER → 2022-04-09 | Outpatient (CLI) | payer OTHER, SELFPAY | END | disposition home or self-care (01) | LOC: LABSPEC 12:50 | PROVIDERS: PCP Family Medicine; Referring Provider Family Medicine; Visit Provider Family Medicine | DX: J42 Unspecified chronic bronchitis (principal) | CPT/HCPCS: 87633 ==

== ENCOUNTER → 2022-05-09 | Outpatient (CLI) | payer OTHER, SELFPAY ==
[2022-05-09 12:14] LABS: Absolute Lymphocyte Count 2.28 X10^3/uL (0.83-4.51); Absolute Neutrophil Count 6.6 X10^3/uL (2.0-7.7); Basophil# 0.07 X10^3/uL; Basophil% 0.7 % (0-1); Eosinophil# 0.48 X10^3/uL; Eosinophils% 4.7 % (0-5); Hematocrit 41.5 % (37-47); Hemoglobin 13.3 g/dL (12.0-15.0); Lymphocyte # 2.28 X10^3/ul (0.83-4.51); Lymphocyte % 22.3 % (19-41); Mean Corpuscular Hgb 28.8 pg (27.0-32.0); Mean Corpuscular Volume 89.8 fL (81-99); Mean Platelet Vol. 10.4 fl (6.2-12.0); Monocyte# 0.66 X10^3/uL; Monocyte% 6.5 % (0-10); NRBC Flagged by Analyzer 0 % (0-5); Neutrophil # 6.56 X10^3/uL (2.7-7.7); Neutrophil % 64.2 % (47-70); Platelet Count 343 K/mm3 (150-450); RBC Distribution Width CV 13.6 % (11.6-14.6); RBC Distribution Width SD 45.1 fl (35.1-43.9); Red Blood Count 4.62 M/mm3 (4.2-5.4); White Blood Count 10.2 K/mm3 (4.4-11.0)
[2022-05-09 12:36] LABS: Vitamin B12 542 pg/mL (211-911); Vitamin D,25 Hydroxy 21.7 ng/mL
[2022-05-09 13:09] LABS: AST(SGOT) 26 U/L (15-37); Alanine Aminotransfer ALT/SGPT 38 U/L (13-56); Albumin, Serum 3.6 g/dL (3.2-5.0); Alkaline Phosphatase 49 U/L (45-117); Anion Gap 7 (5-15); BUN 13 mg/dL (7-18); BUN/Creat Ratio 16.1 RATIO (10-20); Calcium,Total 9.3 mg/dL (8.5-10.1); Chloride 106 mmol/L (98-107); Cholesterol 158 mg/dL (200); Creatinine, Serum 0.81 mg/dL (0.55-1.02); EST Glomerular Filtration Rate 85 mL/min (>60); Est Glom Filt Rate - Afr Amer 102 mL/min (>60); Globulin 3.7 g/dL (2.2-4.2); Glucose 83 mg/dL (74-106); High Density Lipoprotein 61 mg/dL; Potassium 3.9 mmol/L (3.5-5.1); Protein, Total 7.3 g/dL (6.4-8.2); Sodium Level 139 mmol/L (136-145); Thyroid Stim Hormone (TSH) 1.06 uIU/mL (0.358-3.74); Triglycerides 87 mg/dL; Very Low Density Lipoprotein 17 mg/dL (5-40)
== END | disposition home or self-care (01) ==
LOC: BIMLAB 10:55
PROVIDERS: PCP Nurse Practitioner Family; Referring Provider Nurse Practitioner Family; Visit Provider Nurse Practitioner Family
DX: E28.2 Polycystic ovarian syndrome (principal); E66.9 Obesity, unspecified; E56.9 Vitamin deficiency, unspecified
CPT/HCPCS: 36415; 80053; 80061; 82306; 82607; 84443; 85025

== ENCOUNTER → 2022-10-25 | Outpatient (CLI) | payer OTHER, SELFPAY ==
--- NOTE | 2022-10-25 10:27 | US_ITS ---
STUDY: ULTRASOUND TRANSVAGINAL CLINICAL: Female, 37 years old. PELVIC PAIN TECHNIQUE: Transvaginal COMPARISON: 01/09/2020 FINDINGS: Normal uterine size measuring 7.3 x 6.7 x 4.6 cm in maximal craniocaudal dimension. Myometrial fibroids measure up to 4.7 x 4.3 x 3.6 cm predominantly in the uterine fundus, similar when compared to previous ultrasound images.. Normal endometrial thickness measuring 4 mm. There are no endometrial masses, and there is no fluid in the endometrial cavity. Normal uterine cervix. Normal right ovary, measuring 3.7 x 2.0 x 2.2 cm. There are multiple follicles without a dominant cyst. Documented Doppler flow. Normal left ovary, measuring 3.0 x 1.8 x 1.6 cm. There are multiple follicles without a dominant cyst. Limited but documented Doppler flow. There is no free fluid in the pelvis. US/Transvaginal Non- IMPRESSION: Uterine fibroids measuring up to 4.7 cm. Electronically Signed: Zachery So (Brooks), at 21:56 EDT ,
== END | disposition home or self-care (01) ==
LOC: US 10:26
PROVIDERS: PCP Nurse Practitioner Family; Referring Provider Nurse Practitioner Family; Visit Provider Nurse Practitioner Family
DX: R10.2 Pelvic and perineal pain (principal)
CPT/HCPCS: 76830

== ENCOUNTER → 2022-10-28 | Outpatient (CLI) | payer OTHER, SELFPAY ==
--- NOTE | 2022-10-28 11:00 | EMB_PTH ---
PATIENT: CRISTIAN MARIN LOC: [facility] U#:[id number] AGE/SX: 37/F ROOM: RE10/28/[address]: CARLOS Terrell : 1985 BED: DIS: 10/28/2022 SPEC #: [id number] RECD: 10/28/22 14:41 STATUS: COLLETTE REJamaal #: [id number] SHAY: 10/28/22 11:[address]: Nicole Mcqueen NP DEPT: SURGICAL PATHOLOGY RECD BY: Amanda Jimenez ENTERED: 10/29/22 09:22 SP TYPE: ENDOM BX/C MYRNA DR: CARLOS Vergara Tissues: Endometrium, NOS Procedures: Surgery Specimen Level IV HEADER OPERATION: EMB PRE-OP DIAGNOSIS: AUB TISSUE SUBMITTED: Endometrial lining MICROSCOPIC DIAGNOSIS Endometrial biopsy: Proliferative endometrium. SJ: 10/30/2022 MICROSCOPIC DESCRIPTION Slides are reviewed. GROSS DESCRIPTION Received in formalin is one container labeled with the patient name and designated endometrial lining. The specimen consists of multiple irregular fragments of pink-huerta tissue measuring in aggregate 2.2 x 2.0 x 0.2 cm. The specimen is totally submitted in one cassette. / AM:marquis 10/29/22 TC:4 CPT: 35715
== END | disposition home or self-care (01) ==
LOC: LABSPEC 14:17
PROVIDERS: PCP Nurse Practitioner Family; Referring Provider Nurse Practitioner Women's Health; Visit Provider Nurse Practitioner Women's Health
DX: N93.9 Abnormal uterine and vaginal bleeding, unspecified (principal)
CPT/HCPCS: 88305

== ENCOUNTER → 2022-11-07 | Outpatient (CLI) | payer OTHER, SELFPAY ==
[2022-11-07 12:42] LABS: Hemoglobin 12.1 g/dL (12.0-15.0); Mean Corp Hgb Conc 31.8 g/dL (32-36); Mean Corpuscular Hgb 28.7 pg (27.0-32.0); Mean Corpuscular Volume 90.3 fL (81-99); Mean Platelet Vol. 10.3 fl (6.2-12.0); Platelet Count 347 K/mm3 (150-450); RBC Distribution Width CV 13.2 % (11.6-14.6); RBC Distribution Width SD 43.6 fl (35.1-43.9); Red Blood Count 4.21 M/mm3 (4.2-5.4); White Blood Count 10.3 K/mm3 (4.4-11.0)
[2022-11-07 13:33] LABS: Magnesium 2.2 mg/dL (1.6-2.6)
== END | disposition home or self-care (01) ==
LOC: LAB 12:00
PROVIDERS: Anesthesiology; PCP Nurse Practitioner Family; Referring Provider Obstetrics & Gynecology; Visit Provider Obstetrics & Gynecology
DX: Z01.818 Encounter for other preprocedural examination (principal)
CPT/HCPCS: 36415; 83735; 85027; 86850; 86900; 86901

== ENCOUNTER 2022-11-11 06:32 | Day surgery (SDC) | payer OTHER, SELFPAY ==
--- NOTE | 2022-11-09 11:11 | HP.PCM_ITS ---
History and Physical Date of Admission: 11/11/22 Vital Signs 10/28/2309:36 10/31/2310:16 11/06/2306:30 Height 5 ft 5 in 5 ft 5 in Intake Visit Reasons: Pre-op-hyst Allergies shellfish derived Allergy (Severe, Verified 11/04/22 14:47) Angioedemahydromorphone HCl [From Dilaudid] Allergy (Verified 11/04/22 14:47) HivesPenicillins Allergy (Verified 11/04/22 14:47) Rash Medications cholecalciferol (vitamin D3) 50 mcg (2,000 unit) tablet (Vitamin D3) 50 mcg PO DAILY 11/04/22 [History Confirmed 11/04/22] multivitamin (Daily Multi-Vitamin tablet) 1 tab PO DAILY 11/04/22 [History Confirmed 11/04/22] tirzepatide 7.5 mg/0.5 mL subcutaneous pen injector 7.5 mg subcut TU 11/04/22 [History Confirmed 11/04/22] [facility] Medical History (Updated 11/06/22 @ 07:[address] Lilia Mccoy MD) Alcohol use Arthritis Back pain Chronic bronchitis Former smoker Headache, migraine Heartburn Hormone deficiency Inactive TB Injury of head and neck Leg cramps Obesity BONNIE (obstructive sleep apnea) PCOS (polycystic ovarian syndrome) Restless legs Seizures Vitamin deficiency Surgical History H/O: knee surgery History of appendectomy History of foot surgery History of shoulder surgery S/P cholecystectomy Family History Mother Arthritis Hormone disorder Melanoma SeizuresFather Depression Heart diseaseGrandfather Diabetes Heart disease Skin cancerSister Hormone disorderGrandmother Respiratory disease Social History Smoking Status: Former smoker alcohol intake: current alcohol intake frequency: a few times a week substance use type: does not use what type of physical activity do you participate in: walking frequency: 1-2 times per week seatbelt use: always do you feel safe at home: Yes additional social history: Khadra BOYER Pre-op-hyst Details: CRISTIAN MARIN is a 37 year old who presents for heavy irregular bleeding. She is having hevyer menses changing protection every 1-3 hours with heavy bleeding and severe cramping, pelvic heaviness, needing to reduce activities and interfering with work. she has a fibroid that is almost 5 cm and a history of PCOS. she has lost weight intentionally with mounjaro. she is nulliparous. she had a normal emb. she is ready for definitive therapy. she denies any vaginal pain or prolapse, no urinary complaints, no dizziness or lightheadedness. Female Reproductive History Menopausal Symptoms: No night sweats History 0 Elective abortions Hx Para Spontaneous abortions Hx # Term Pregnancies Ectopic pregnancies Hx # Pregnancies Multiple births # of living children ROS Const Constitutional: Reports weight loss; Denies fatigue, night sweats or weight gain ENT ENT: Reports system reviewed and no additional complaints, except as documented Cardio Card: Denies chest pain Resp Resp: Denies cough or dyspnea GI GI: Reports as per HPI; Denies abdominal pain, constipation, nausea or vomiting : Denies nipple discharge, urinary frequency, urinary incontinence, urinary hesitancy, urinary urgency, vaginal discharge, vaginal dryness, vaginal odor or vaginal pruritus Musc Musc: Denies arthralgias, back pain or muscle weakness Skin Skin/Breast: Denies alopecia, change in hair, dry skin, breast mass, breast pain, breast skin changes or nipple discharge Neuro Neuro: Reports system reviewed and no additional complaints, except as documented Psych Psych: Reports system reviewed and no additional complaints, except as documented Endo Endo: Denies cold intolerance, excessive sweating, heat intolerance or polydipsia Henok/Lymph Hematologic/Lymphatic: Denies easy bleeding, Denies easy bruising and Denies lymphadenopathy Exam Const General: cooperative, healthy appearing, comfortable and no acute distress Orientation: alert [facility] [place] Head: normal to inspection and normocephalic Ears: hearing grossly normal bilaterally and external ears normal Nose: external nose normal and nares normal Face and sinus: normal facial exam Neck Neck: normal visual inspection and no lymphadenopathy Thyroid: thyroid normal Chest Chest palpation & inspection: normal inspection of the chest Resp Effort & Inspection: normal respiratory effort Auscultation: clear to auscultation bilaterally Cardio Rate: regular rate Rhythm: regular rhythm Heart Sounds: S1 normal and S2 normal GI Inspection: normal to inspection and non-distended Palpation: soft and no hepatosplenomegaly Musc Other: gross motor intact no deficits, full bilateral strength Skin General: no rashes or lesions noted Neuro General: patient alert, patient awake, moves all extremities and no focal motor deficits Motor: muscle tone normal throughout Extrem General: normal to inspection and no pedal edema Psych Appearance: grossly normal Mental Status: mental status grossly normal Affect: normal affect Speech and Movement: speech and movement normal Coding Level of Care Code Off vis,est,level 5 Diagnoses Intramural leiomyoma of uterus D25.1 Uterine leiomyoma location: intramural Menorrhagia with irregular cycle N92.1 PCOS (polycystic ovarian syndrome) E28.2 Obesity E66.9 Pelvic pain R10.2 Assessment and Plan Assessment and Plan (1) Uterine fibroid: Status: Acute Qualifiers: Uterine leiomyoma location: intramural Qualified Code(s): D25.1 - Intramural leiomyoma of uterus Comment: X 3 up to 4.7cm proceed with LAVH BS (2) Menorrhagia with irregular cycle: Status: Acute Comment: EMB proliferative. needs lavh bs (3) PCOS (polycystic ovarian syndrome): Status: Chronic (4) Obesity: Status: Chronic (5) Pelvic pain: Status: Acute Plan After discussing the patient's diagnosis and treatment plan options, patient wishes to proceed with surgical management. I have discussed with the patient the risks, benefits, and alternatives of the procedure which include but are not limited to risks of anesthesia, bleeding, infection, possible damage to bowel, bladder, or surrounding vasculature which could lead to additional surgery to evaluate any complications. Patient agrees to procedure and wishes to proceed. ACOG/uptodate references given for additional information regarding procedure. Lilia Mccoy MD Cosigner Signature: Date (if applicable) CC: ~
[2022-11-11] VITALS (15 sets, daily range): BP systolic 92–116; BP diastolic 49–74; PULSE 60–83; RESP 16–24; TEMP 36.5–36.7; O2SAT 93–100; BMI 38.4
--- NOTE | 2022-11-11 | HYST_PTH ---
PATIENT: CRISTIAN MARIN [place] [facility] [place][id number] AGE/SX: 37/F ROOM: RE11/11/[address]: Dr. Lilia Mccoy MD : 1985 BED: DIS: 11/11/2022 SPEC #: [id number] RECD: 11/11/22 14:20 STATUS: COLLETTE PEPPER #: [id number] SHAY: 11/11/22 00:[address]: Lilia Mccoy DEPT: SURGICAL PATHOLOGY RECD BY: Jamel Valente ENTERED: 11/12/22 08:32 SP TYPE: HYSTERECT OTHR DR: Yasmani Beltrán, VANESA-C Tissues: Uterus, NOS Procedures: Surgery Specimen Level V HEADER OPERATION: Laparoscopic assisted vaginal hysterectomy, bilateral salpingectomy PRE-OP DIAGNOSIS: Uterine fibroid, menorrhagia with irregular cycle, PCOS, pelvic pain TISSUE SUBMITTED: Uterus, cervix, bilateral fallopian tubes MICROSCOPIC DIAGNOSIS Uterus, cervix, bilateral fallopian tubes, vaginal hysterectomy and bilateral salpingectomy: Cervix - no pathologic diagnosis. Endometrium - secretory endometrium. Myometrium - intramural leiomyomas (largest measuring 4.5 cm in greatest dimension). Bilateral fallopian tubes - no pathologic diagnosis. SJ:sorin 11/13/2022 MICROSCOPIC DESCRIPTION Slides are reviewed. GROSS DESCRIPTION Received in fixative is one container labeled with the patient's name and designated uterus. The specimen consists of a previously opened uterus measuring 9.0 x 8.5 x 6.0 cm and weighing 118 gm. The ectocervix is unremarkable. An attached right fallopian tube is present measuring 6.0 cm in length and 8.0 cm in diameter. A detached left fallopian tube is also present measuring 4.0 cm in length and 0.6 cm in diameter. The ectocervix of the uterus is grossly unremarkable. The elongated endometrial cavity measures 3.8 x 2.0 cm. The velvety, reddish-huerta endometrium measures up to 0.2 cm in thickness. The myometrium measures 2.6 cm in average thickness and is distorted with multiple spherical rubbery nodules ranging in size from 0.5 to 4.5 cm in greatest dimension. The cut surfaces reveal whorled appearances consistent with leiomyomas. Serial sections of the right and left fallopian tubes do not reveal lesions. Olericulturist sections are submitted in 12 cassettes as follows: 1 - anterior cervix, 2??posterior cervix, 3-5 - anterior myometrial wall, 6-8 - posterior myometrial wall, 9 - largest myometrial mass, 10 - second and third largest myometrial masses, 11 - right fallopian tube, 12 - left fallopian tube. / AM:sorin 11/12/2022 TC:1 CPT: 36800
[2022-11-11] MEDS: Gabapentin 600 MG Tablet PO (07:25)
[2022-11-11] MEDS: Acetaminophen 500 MG Tablet 1000 MG PO ×2 (07:25→15:40)
[2022-11-11] MEDS: Celecoxib 200 MG Capsule 400 MG PO (07:26)
[2022-11-11] MEDS: Phenazopyridine 95 MG Tablet 190 MG PO (07:26)
[2022-11-11] MEDS: Scopolamine 1mg/72hr Patch 1 PATCH TD (07:27)
[2022-11-11] MEDS: Enoxaparin 40 MG/0.4 ML Syringe SC (07:27)
[2022-11-11 07:31] LABS: Internal QC Validated? YES +Cl - CLEAR BKGD; Pregnancy, Urine Negative Negative
[2022-11-11 07:39] LABS: Bedside Glucose 83 mg/dL (74-106)
[2022-11-11] MEDS: Lactated Ringers 1,000 ML 40 ML IV ×2 (07:51→15:50)
[2022-11-11] MEDS: dexAMETHasone 4 MG/ML Vial 8 MG IV (07:51)
[2022-11-11] MEDS: Magnesium 1 GM over 15 mins IV (07:52)
--- NOTE | 2022-11-11 09:45 | OP.PCM_ITS ---
Problems Associated Problem List Diagnoses (1) Pelvic pain: (2) Uterine fibroid: (3) Menorrhagia with irregular cycle: Report of Operation Date of Procedure: 11/11/22 Pre-Operative Diagnosis: see A/P Post-Operative Diagnosis: same Surgery/Procedure Performed:: LAVHBS cystoscopy Description of Surgical Findings:: enlarged irregular fibroid uterus Surgeon: Lilia Mccoy club lounge attendant: None (sydney fofana) club lounge attendant: Gemini Galarza Type of Anesthesia: General Specimen's removed: uterus, tubes Drains: mcintyre Estimated Blood Loss (mL): 200 Fluids Replaced: crystalloid Description of Procedure: Patient received preoperative antibiotics and SCDs were on preoperatively. Patient was taken back to the operating room and placed in the dorsal lithotomy position. General anesthesia was induced and patient was prepped and draped in normal sterile fashion. Uterine manipulator was placed inside the uterus and Mcintyre catheter placed in the bladder. The umbilicus was grasped with towel clamps and an intraumbilical incision was made after injecting with quarter percent Marcaine and a Veress needle entered into the abdomen confirmed to be intra-abdominal with a low opening pressure. Abdomen was insufflated with CO2 gas and the Veress needle removed and the 5 mm trocar was placed under direct visualization without complication. Right and left lower quadrants were transilluminated and injected with quarter percent Marcaine and 5 mm ports placed under direct visualization. Pelvis was well visualized see operative findings for additional information. Bilateral fallopian tubes were identified and transected with the LigaSure device across the mesosalpinx to the level of the utero-ovarian ligament which was also transected with the LigaSure device. The broad ligament was opened up by transecting the round ligament bilaterally and skeletonizing the uterine vessels bilaterally and creating a bladder flap using the LigaSure device. The uterine arteries were transected bilaterally with good visualization of the bladder and the ureters were seen to be inferior lateral to the operative area. Attention was then paid to the vaginal portion of the procedure and the cervix was grasped with Kareen clamps and circumferentially injected with dilute vasopressin. A circumferential incision was made and the vaginal mucosa was mobilized off posteriorly and the cul-de-sac entered into sharply and a longneck speculum placed. The anterior cul-de-sac was then identified and entered into sharply. The uterosacral ligaments were clamped cut and suture ligated with 0 Monocryl bilaterally followed by the cardinal ligaments which were clamped cut and suture ligated bilaterally with 0 Monocryl. The uterus serially descended and was removed without difficulty. Pelvic sidewall pedicles were checked and noted to have excellent hemostasis. The vaginal mucosa was reapproximated incorporating the posterior peritoneum. This was reapproximated using 0 Vicryl [id number] sutures. Excellent hemostasis was noted. Mcintyre catheter was replaced and then attention paid to the abdominal portion of the procedure again. The pelvis and cul-de-sac were well visualized and no significant active bleeding noted. Pressure was taken down and the areas visualized and noted of excellent hemostasis. Upon evaluation there was a tubular structure seen in the right vascular pedicle thought to be the uterine artery but to confirm a cystoscopy was decided to be performed. The cystoscopy was then performed and bilateral ureteral strong spray was noted and the bladder was noted to have no abnormality or lesions seen. All ports were removed under direct visualization without complication and the abdomen was desufflated of air. The instruments were removed from the abdomen and the vaginal sweep was negative. Port sites on the abdomen were closed with 4-0 Monocryl interrupted sutures and Steri's and windows were applied. She was awoken and taken recovery in stable condition. Grafts/Implants Used: none Complications none Admit VTE Documentation VTE Present on Admission: No VTE Mechan Device Prophylaxis: SCD's VTE Pharm Prophylaxis ordered?: Yes Multi Select Codes Urinary/Genital Urinary/Genital CPT Codes: 05207 Cystoscopy and 65815 LAVH+BS/O <250gr Uterus
[2022-11-11] MEDS: Clindamycin 900 MG/50 ML BAG 75 MG IV (09:46)
--- NOTE | 2022-11-11 09:47 | PCM.DC ---
Discharge Instructions Diet Discharge Diet: No restrictions Activity May resume sexual activity in: 6 weeks Weight Bearing Status: Full weight bearing Dressing / Incision Call your doctor if your incision/area has: Continuous Slow Oozing, Sudden Increased Bleeding, Increased Pain/ Swelling, Increased Redness and Foul Smelling Discharge Call your doctor if you observe: Fever of 101 or Higher, Using more than 1 pad per hour, Shortness of breath, Chest pain and Uncontrolled pain Suture Line Care: Avoid Pulling/Pushing and Avoid Pinching/Bending Remove Dressing in: 1 week (if present) Cleanse incision/area with: Soap & Water and Keep Dressing Clean & Dry Follow Up Care Please Follow Up With: Lilia Mccoy MD When: Call to make an appointment with your doctor for a postop visit in 2 and 6 weeks. Test Results: Test results from this visit will be discussed in further detail at your follow-up appointment, if applicable. Discharge Plan Admission Attending Provider: Lilia Mccoy Primary Care Provider: Yasmani Beltrán NP Discharge Orders/Prescriptions Prescriptions: New naproxen [naproxen] 500 mg tablet 500 mg PO BID PRN PRN (Reason: Pain) Qty: 30 1RF Continued multivitamin [Daily Multi-Vitamin] Tablet 1 tab PO DAILY cholecalciferol (vitamin D3) [Vitamin D3] 50 mcg (2,000 unit) tablet 50 mcg PO DAILY tirzepatide 7.5 mg/0.5 mL pen injector 7.5 mg subcut TU Referrals / Follow Up: Yasmani Beltrán NP, BODY MECHANIC APPRENTICE-C [Primary Care Provider] - Disposition Disposition (needs filled in before D/C Order can be placed): Home, Self Care
[2022-11-11] MEDS: Bupivacaine 0.25% 30 ML Vial (10:16)
[2022-11-11] MEDS: Vasopressin 20 UNITS/ML Vial (10:59)
[2022-11-11] MEDS: Ondansetron 4 MG/2 ML Vial IV (12:05)
[2022-11-11 15:35] LABS: Hematocrit 42.4 % (37-47); Hemoglobin 13.8 g/dL (12.0-15.0); Mean Corp Hgb Conc 32.5 g/dL (32-36); Mean Corpuscular Hgb 29.1 pg (27.0-32.0); Mean Corpuscular Volume 89.3 fL (81-99); Mean Platelet Vol. 10.3 fl (6.2-12.0); Platelet Count 396 K/mm3 (150-450); RBC Distribution Width CV 13.2 % (11.6-14.6); RBC Distribution Width SD 43.5 fl (35.1-43.9); Red Blood Count 4.75 M/mm3 (4.2-5.4); White Blood Count 21.6 K/mm3 (4.4-11.0)
== END 2022-11-11 17:50 | disposition home or self-care (01) ==
LOC: SDC 06:32 → AC 06:33
PROVIDERS: Anesthesiology; PCP Nurse Practitioner Family; Referring Provider Obstetrics & Gynecology; Visit Provider Obstetrics & Gynecology
PROC: 0UT9FZZ Resection of Uterus, Via Natural or Artificial Opening With Percutaneous Endoscopic Assistance (ICD-10-PCS; CPT 58552; principal; 2022-11-11 08:10)
DX: D25.1 Intramural leiomyoma of uterus (principal); N92.1 Excessive and frequent menstruation with irregular cycle; G47.33 Obstructive sleep apnea (adult) (pediatric); E66.9 Obesity, unspecified; Z87.891 Personal history of nicotine dependence; Z79.899 Other long term (current) drug therapy
CPT/HCPCS: 58552; 00840; 36415; 81025; 82962; 85027; 88307; J7120; J2405; J3475

== ENCOUNTER 2022-11-14 18:36 | Emergency (ER) | payer OTHER, SELFPAY ==
[2022-11-14 18:38] VITALS: BP 137/86; PULSE 89; RESP 16; TEMP 35.9; O2SAT 100; BMI 38.6
[2022-11-14] MEDS: Clotrimazole 10 MG Troche MUCOUS MEM (21:05)
--- NOTE | 2022-11-14 22:35 | EX.ED.DYSGE1 ---
HPI History of Present Illness Chief Complaint: Sore Throat Narrative Narrative: 37-year-old female presenting with thrush on her tongue. Patient states that she had a hysterectomy this week and everything has been recovering well except she noticed pain in her throat and her tongue has been plaque on it which she states is green. She called her primary care physician and they told her to go to the emergency room because they never heard of something like this. Patient states is mildly painful. No fevers or chills. No difficulty swallowing or breathing. PFSH [facility] Medical History (Updated 11/14/22 @ 20:[address] Behzad Newsome, DO) Alcohol use Arthritis Back pain Chronic bronchitis Former smoker Headache, migraine Heartburn Hormone deficiency Inactive TB Injury of head and neck Leg cramps Obesity BONNIE (obstructive sleep apnea) PCOS (polycystic ovarian syndrome) Restless legs Seizures Vitamin deficiency Home Medications cholecalciferol (vitamin D3) 50 mcg (2,000 unit) tablet (Vitamin D3) 50 mcg PO DAILY 11/04/22 [History Last Taken 11/08/22] multivitamin (Daily Multi-Vitamin tablet) 1 tab PO DAILY 11/04/22 [History Last Taken 11/08/22] hydrocodone-acetaminophen 5-325mg 5mg-325mg 1 tab PO Q6H PRN pain 5 days #20 tabs 11/11/22 [Rx Last Taken Unknown] naproxen 500 mg tablet 500 mg PO BID PRN PRN Pain #30 tabs 11/11/22 [Rx Last Taken Unknown] clotrimazole 10 mg joe See Rx Instructions .Route .COMPLEX #70 tabs 11/14/22 [Rx Last Taken Unknown] Allergy/AdvReac Type Severity Reaction Status Date / Time shellfish derived Allergy Severe Angioedema Verified 11/14/22 18:38 hydromorphone HCl Allergy Hives Verified 11/14/22 18:38 [From Dilaudid] Penicillins Allergy Rash Verified 11/14/22 18:38 Family History Mother Arthritis Hormone disorder Melanoma Seizures Father Depression Heart disease Grandfather Diabetes Heart disease Skin cancer Sister Hormone disorder Grandmother Respiratory disease Surgical History (Updated 11/14/22 @ 19:58 by Elder Buckley) H/O: knee surgery History of appendectomy History of foot surgery History of hysterectomy (~11/11/22) History of shoulder surgery S/P cholecystectomy S/P laparoscopic assisted vaginal hysterectomy (LAVH) Social History Smoking Status: Former smoker alcohol intake: current alcohol intake frequency: a few times a week substance use type: does not use what type of physical activity do you participate in: walking frequency: 1-2 times per week seatbelt use: always do you feel safe at home: Yes additional social history: Khadra MORALES ED Constitutional Constitutional ED: Denies chills, fever(s) or sweats Eyes Eyes: Denies blurry vision or change in vision ENT ENT ED: Reports sore throat and other Details: Thrush ; Denies ear pain Cardiovascular Cardiovascular: Denies chest pain, palpitations or racing heartbeat Respiratory/Chest Respiratory/Chest: Denies cough, dyspnea or sputum Gastrointestinal Gastrointestinal: Denies abdominal pain, constipation, diarrhea, nausea or vomiting Genitourinary Genitourinary ED: Denies dysuria, hematuria or urinary frequency Musculoskeletal Musculoskeletal: Denies arthralgias, myalgias or neck pain Integumentary Denies abscess, Abrasions or rash Neurologic Neurologic: Denies headache(s), paresthesias or weakness Psychiatric Psychiatric: Denies anxiety, depression, suicidal ideation or suicidal thoughts Endocrine Endocrinology: Denies polydipsia or polyuria EXAM Physical Exam Const Vital Signs: 11/14/22 18:38 11/14/22 19:57 Temperature 96.7 F L Temperature Source Temporal Pulse Rate 89 Respiratory Rate 16 Respiratory Pattern Normal Blood Pressure 137/86 H Blood Pressure Mean 103 Pulse Ox 100 Oxygen Delivery Method Room Air Positive well nourished General Appearance ED: NAD HEENT HEENT Narrative: Greenish-white thrush noted to the tongue. Oropharynx is patent without stridor. There are some posterior oropharyngeal erythema. The plaque is able to be scraped from the tongue without difficulty. It is erythematous underneath MDM MDM MDM Narrative Medical decision making narrative: Patient presenting with thrush on her tongue. I will start her on clotrimazole troches. I gave her the first dose in the ED. Recommended close follow-up with her PCP. Return precautions discussed. Impression: 1. Thrush Lab Data Attestation: I reviewed the patient's lab results. Discharge Plan Triage Chief Complaint: Sore Throat Other Complaint: Abd Pain Edema ED Provider: Behzad Newsome Dx/Rx/DC Orders Clinical Impression: Oral thrush Instructions: Jenn Infection: Thrush Prescriptions: New clotrimazole 10 mg joe See Rx Instructions .ROUTE .COMPLEX Qty: 70 0RF Rx Instructions: 10 mg to affected mucosal area 5 times a day dispense amount sufficient for 2 weeks No Action multivitamin [Daily Multi-Vitamin] Tablet 1 tab PO DAILY cholecalciferol (vitamin D3) [Vitamin D3] 50 mcg (2,000 unit) tablet 50 mcg PO DAILY naproxen [naproxen] 500 mg tablet 500 mg PO BID PRN PRN (Reason: Pain) Qty: 30 1RF hydrocodone-acetaminophen 5-325 mg tablet 1 tab PO Q6H PRN (Reason: pain) 5 Days Qty: 20 0RF Primary Care Provider: Yasmani Beltrán NP Referrals: Yasmani Beltrán NP, INSPECTOR SUBASSEMBLIES-C [Primary Care Provider] - Disposition Disposition: Home, Self Care Discharge Date/Time: 11/14/22 21:06
== END 2022-11-14 21:06 | disposition home or self-care (01) ==
PROVIDERS: Emergency Provider Student in an Organized Health Care Education/Training Program; PCP Nurse Practitioner Family; Visit Provider Student in an Organized Health Care Education/Training Program
DX: B37.0 Candidal stomatitis (principal); G47.33 Obstructive sleep apnea (adult) (pediatric); Z87.891 Personal history of nicotine dependence
CPT/HCPCS: 99284

== ENCOUNTER 2022-11-28 23:32 | Emergency (ER) | payer OTHER, SELFPAY ==
[2022-11-28 23:33] VITALS: BP 136/88; PULSE 73; RESP 15; TEMP 36.4; O2SAT 100; BMI 37.9
--- NOTE | 2022-11-29 02:18 | CT_ITS ---
EXAM: CT Abdomen And Pelvis W/O Contrast Injection HISTORY: abd pain POST OP VAGINAL HYSTERECTOMY,VAGINAL BLEEDING SINCE 9 PM LAST NIGHT TECHNIQUE: Routine protocol CT abdomen and pelvis. IV Contrast: None.. Oral contrast: None. RADIATION DOSAGE (If Supplied By Facility): CTDIvol = ( 18.13 ) mGy, DLP = ( 937.79 ) mGycm Individualized dose optimization techniques were used for this CT. COMPARISON: CT abdomen and pelvis 04/14/2019. CT chest 12/05/2019. LIMITATIONS: None. FINDINGS: LOWER CHEST: Included lung bases are clear. 4 mm nodule right lower lobe is unchanged compared to prior CT chest, no follow-up needed. LIVER: Grossly unremarkable. GALLBLADDER AND BILIARY TREE: Gallbladder not identified presumed surgically absent. PANCREAS: Grossly unremarkable. SPLEEN: Grossly unremarkable. ADRENAL GLANDS: Grossly unremarkable. KIDNEYS AND URETERS: No calculi demonstrated. No hydronephrosis. PERITONEUM: No free air. Minimal free fluid in the pelvis. BOWEL: No bowel obstruction. APPENDIX: Not identified. VESSELS: Abdominal aorta is normal caliber. REPRODUCTIVE ORGANS: Uterus surgically absent. Minimal stranding in the region. No large localized collection. URINARY BLADDER: Grossly unremarkable. ABDOMINAL WALL: Unremarkable. BONES: No acute abnormalities. CT/Abdomen/Pelvis without Cont IMPRESSION: Minimal stranding in the pelvis presumed postsurgical change. No large localized collection or hematoma. Electronically Signed: Apryl Barbosa MD at 3:07 EDT ,
[2022-11-29 02:26] LABS: Absolute Lymphocyte Count 4.16 X10^3/uL (0.83-4.51); Absolute Neutrophil Count 7.7 X10^3/uL (2.0-7.7); Basophil# 0.12 X10^3/uL; Basophil% 0.9 % (0-1); Eosinophil# 0.76 X10^3/uL; Eosinophils% 5.6 % (0-5); Hematocrit 42.1 % (37-47); Hemoglobin 13.6 g/dL (12.0-15.0); Lymphocyte # 4.16 X10^3/ul (0.83-4.51); Lymphocyte % 30.7 % (19-41); Mean Corp Hgb Conc 32.3 g/dL (32-36); Mean Corpuscular Hgb 28.6 pg (27.0-32.0); Mean Corpuscular Volume 88.6 fL (81-99); Monocyte# 0.73 X10^3/uL; Monocyte% 5.4 % (0-10); NRBC Flagged by Analyzer 0 % (0-5); Neutrophil # 7.72 X10^3/uL (2.7-7.7); Platelet Count 491 K/mm3 (150-450); RBC Distribution Width CV 12.6 % (11.6-14.6); RBC Distribution Width SD 41.3 fl (35.1-43.9); Red Blood Count 4.75 M/mm3 (4.2-5.4); White Blood Count 13.6 K/mm3 (4.4-11.0)
[2022-11-29 02:33] VITALS: RESP 16
[2022-11-29 02:34] LABS: International Normalized Ratio 1.1; Prothrombin Time (Protime)PT. 13.8 SECONDS (11.7-14.9)
[2022-11-29 02:35] LABS: Partial Thromboplast Time 34.2 Seconds (24.1-36.2)
[2022-11-29 02:44] LABS: Anion Gap 5 (5-15); BUN 10 mg/dL (7-18); BUN/Creat Ratio 12.2 RATIO (10-20); Calcium,Total 8.6 mg/dL (8.5-10.1); Chloride 110 mmol/L (98-107); Creatinine, Serum 0.82 mg/dL (0.55-1.02); EST Glomerular Filtration Rate 83 mL/min (>60); Est Glom Filt Rate - Afr Amer 100 mL/min (>60); Glucose 83 mg/dL (74-106); Potassium 3.9 mmol/L (3.5-5.1); Sodium Level 136 mmol/L (136-145)
--- NOTE | 2022-11-29 03:48 | ED.VIS.FEGU ---
HPI HPI - Female History of Present Illness Chief Complaint: Vag Bleeding Informant: patient Narrative Narrative: Patient is a 37-year-old female with past medical history of PCOS and obstructive sleep apnea who underwent a hysterectomy approximately 2 weeks ago. She states that she was doing well and had standard bleeding for the first 5 days but then this stopped. However today she developed some lower abdominal pain and had passage of large amount of bright red blood. She contacted her OB secondary to the return of bleeding and was advised to come to the ER for repeat evaluation. Patient denies any history of bleeding disorder or blood thinner use. PFSH PFSH Medical History Alcohol use Arthritis Back pain Chronic bronchitis Former smoker Headache, migraine Heartburn Hormone deficiency Inactive TB Injury of head and neck Leg cramps Obesity BONNIE (obstructive sleep apnea) PCOS (polycystic ovarian syndrome) Restless legs Seizures Vitamin deficiency Home Medications cholecalciferol (vitamin D3) 50 mcg (2,000 unit) tablet (Vitamin D3) 50 mcg PO DAILY 11/04/22 [History Last Taken 11/08/22] multivitamin (Daily Multi-Vitamin tablet) 1 tab PO DAILY 11/04/22 [History Last Taken 11/08/22] naproxen 500 mg tablet 500 mg PO BID PRN PRN Pain #30 tabs 11/11/22 [Rx Last Taken Unknown] clotrimazole 10 mg joe See Rx Instructions .Route .COMPLEX #70 tabs 11/14/22 [Rx Last Taken Unknown] Allergy/AdvReac Type Severity Reaction Status Date / Time shellfish derived Allergy Severe Angioedema Verified 12/01/22 14:37 hydromorphone HCl Allergy Hives Verified 12/01/22 14:37 [From Dilaudid] Penicillins Allergy Rash Verified 12/01/22 14:37 Family History Mother Arthritis Hormone disorder Melanoma Seizures Father Depression Heart disease Grandfather Diabetes Heart disease Skin cancer Sister Hormone disorder Grandmother Respiratory disease Surgical History H/O: knee surgery History of appendectomy History of foot surgery History of hysterectomy (~11/11/22) History of shoulder surgery S/P cholecystectomy S/P laparoscopic assisted vaginal hysterectomy (LAVH) Social History Smoking Status: Former smoker alcohol intake: current alcohol intake frequency: a few times a week substance use type: does not use what type of physical activity do you participate in: walking frequency: 1-2 times per week seatbelt use: always do you feel safe at home: Yes additional social history: Khadra MORALES ROS ED Constitutional Constitutional ED: Denies chills or fever(s) ENT ENT ED: Denies sore throat Cardiovascular Cardiovascular: Denies chest pain Respiratory/Chest Respiratory/Chest: Denies cough or dyspnea Gastrointestinal Gastrointestinal: Reports abdominal pain; Denies diarrhea, nausea or vomiting Genitourinary Genitourinary ED: Reports other Details: Positive vaginal bleeding ; Denies dysuria Musculoskeletal Musculoskeletal: Denies myalgias Integumentary Denies rash Neurologic Neurologic: Denies headache(s) Hematologic/Lymphatic Hematologic/Lymphatic: Denies easy bleeding or easy bruising EXAM Physical Exam Const Vital Signs: 11/28/22 23:33 11/29/22 02:33 Temperature 97.6 F L Temperature Source Temporal Pulse Rate 73 Respiratory Rate 15 16 Blood Pressure 136/88 H Blood Pressure Mean 104 Pulse Ox 100 Oxygen Delivery Method Room Air Positive well nourished and well developed General Appearance ED: well developed; Negative for pallor HEENT HEENT Narrative: Normocephalic atraumatic Eyes PERRL and EOMs intact bilaterally General Eye ED: Negative for pale conjunctiva Neck supple Resp normal respiratory effort and clear to auscultation bilaterally Cardio regular rate and regular rhythm Rate: other Other Details: Radial and carotid pulses are equal and symmetric GI non-distended GI Narrative: Abdomen is obese soft and nondistended with normal active bowel sounds. There is mild pain on palpation in the lower abdomen diffusely without voluntary guarding or rigidity. No pulsatile mass or fluid wave. Auscultation: normoactive bowel sounds Palpation: soft Narrative: External genital exam reveals a small amount of dark red blood at the vaginal os. This was wiped away and there is no sudden gush of blood or feeling of the vaginal os. Patient deferred internal exam. Back/Spine no CVA tenderness Extremity normal to inspection Neuro oriented x3 and CN's II-XII intact bilaterally Sensorium / Orientation: alert Psych mental status grossly normal Skin no rashes or lesions noted General Skin Exam: Negative for pallor MDM MDM MDM Narrative Medical decision making narrative: Patient presented to the ER with stable vitals but with her recent surgical procedure and then sudden onset of bleeding there is concern that she ruptured a suture or had a hematoma that now has found a weak spot in the surgical closure and is leaking out. Patient could have acute blood loss anemia or thrombocytopenia as a cause of this as well so basic blood work was ordered. Labs revealed no clinically significant finding. CT scan had to be done without IV contrast as patient was a difficult stick and had multiple IV attempts and filtration of the IV is placed for the CT scan. The CT scan reveals standard postoperative changes without obvious hematoma abscess or fluid collection. The case was then discussed with CLIENT ACCOUNT ASSISTANT on-call and as patient is not anemic or hypotensive and CT scan does not reveal a large fluid collection and the patient's bleeding has slowed down they feel she is safe to follow-up in office over the next 2 days. The plan of care was discussed with the patient she is agreeable to it and his vitals remained stable and work-up was essentially negative she is otherwise safe for discharge. History & Record Review Discussion w/independent historian: Patient Lab Data Attestation: I reviewed the patient's lab results. Labs: Laboratory Results - last 24 hr 11/29/22 02:15 WBC 13.6 H RBC 4.75 Hgb 13.6 Hct 42.1 MCV 88.6 MCH 28.6 MCHC 32.3 RDW Std Deviation 41.3 RDW Coeff of Bibiana 12.6 Plt Count 491 H MPV 10.0 Immature Gran % (Auto) 0.400 Neut % (Auto) 57.0 Lymph % (Auto) 30.7 Phillips % (Auto) 5.4 Eos % (Auto) 5.6 H Baso % (Auto) 0.9 Absolute Neuts (auto) 7.7 Absolute Lymphs (auto) 4.16 Nucleated RBC % 0 PT 13.8 INR 1.1 APTT 34.2 Sodium 136 Potassium 3.9 Chloride 110 H Carbon Dioxide 21.0 Anion Gap 5 BUN 10 Creatinine 0.82 Estim Creat Clear Calc 83.70 Est GFR (MDRD) Af Amer 100 Est GFR (MDRD) Non-Af 83 BUN/Creatinine Ratio 12.2 Glucose 83 Calcium 8.6 Radiography Diagnostic Testing: Clinical Impression(s) from Imaging Studies Abdomen/Pelvis CT 11/29/22 02:18 IMPRESSION: Minimal stranding in the pelvis presumed postsurgical change. No large localized collection or hematoma. Electronically Signed: Apryl Barbosa MD at 3:07 EDT , Discharge Plan Triage Chief Complaint: Vag Bleeding ED Provider: Amadeo Lagunas Dx/Rx/DC Orders Clinical Impression: Post-op bleeding, PCOS (polycystic ovarian syndrome), Obesity Instructions: ED Post Op Wound Check, Bleeding Prescriptions: No Action clotrimazole 10 mg joe See Rx Instructions .ROUTE .COMPLEX Qty: 70 0RF Rx Instructions: 10 mg to affected mucosal area 5 times a day dispense amount sufficient for 2 weeks multivitamin [Daily Multi-Vitamin] Tablet 1 tab PO DAILY cholecalciferol (vitamin D3) [Vitamin D3] 50 mcg (2,000 unit) tablet 50 mcg PO DAILY naproxen [naproxen] 500 mg tablet 500 mg PO BID PRN PRN (Reason: Pain) Qty: 30 1RF Primary Care Provider: Yasmani Beltrán NP Referrals: Lilia Mccoy MD [Med Staff - Active Staff] - Yasmani Beltrán NP, CHARGING MACHINE OPERATOR-C [Primary Care Provider] - Activity Restrictions/Additional Instructions: Please follow-up with your CLIENT ACCOUNT ASSISTANT on Thursday or Thursday for repeat evaluation and potential pelvic exam. If your bleeding is minimal/light such as you had after initial surgery this is okay. However if you develop passage of clots large amount of bleeding develop a fever abdominal pain or lightheadedness/passing out please return to the ER for repeat evaluation. Disposition Disposition: Home, Self Care Discharge Date/Time: 11/29/22 04:32
== END 2022-11-29 04:32 | disposition home or self-care (01) ==
PROVIDERS: Emergency Provider Emergency Medicine; PCP Nurse Practitioner Family; Visit Provider Emergency Medicine
DX: N99.820 Postprocedural hemorrhage of a genitourinary system organ or structure following a genitourinary system procedure (principal); E28.2 Polycystic ovarian syndrome; E66.9 Obesity, unspecified; G47.33 Obstructive sleep apnea (adult) (pediatric); R10.30 Lower abdominal pain, unspecified; Z87.891 Personal history of nicotine dependence
CPT/HCPCS: 74176; 80048; 85025; 85610; 85730; 99282; J7030; A4216

== ENCOUNTER 2022-12-22 08:48 | Emergency (ER) | payer OTHER, SELFPAY ==
[2022-12-22 08:49] VITALS: BP 122/75; PULSE 58; RESP 14; TEMP 36.6; O2SAT 100; BMI 35.9
--- NOTE | 2022-12-22 08:59 | CT_ITS ---
INDICATION: Headache EXAMINATION: CT BRAIN - CT Head or Brain W/O Contrast Injection TECHNIQUE: Multiple axial images were obtained of the head without intravenous contrast. A radiation dose optimization technique was used for this scan. IV Contrast dosage and agent: None. RADIATION DOSAGE (If Supplied By Facility): CTDIvol = ( 44.99 ) mGy, DLP = ( 728.62 ) mGycm COMPARISON: No relevant prior comparison study available FINDINGS: BRAIN PARENCHYMA: No intra- or extra-axial hemorrhage. No evidence of acute infarct. No intracranial mass or mass effect. There is preservation of the muller/white matter interface. Posterior fossa structures are unremarkable. CSF SPACES: Appropriate for age. No hydrocephalus. Basal cisterns are patent. CALVARIUM, SKULL BASE, PARANASAL SINUSES AND MASTOID AIR CELLS: Clear. No discrete lytic or blastic abnormalities. ORBITS: Both globes, extraocular muscles, optic nerves and retrobulbar fat appear unremarkable. CT/Brain/Head without Contrast IMPRESSION: No acute intracranial process. Electronically Signed: Gerardo Peña MD at 9:54 EDT ,
--- NOTE | 2022-12-22 09:12 | EDS_ITS ---
HPI History of Present Illness Chief Complaint: Headache Informant: patient Onset/Context/Timing Onset: Today Context: Sudden Timing: Continuous Quality -Headache: Positive for Sharp Location: Right-sided Worsened by: Ambulation Relieved by: Nothing Associated Symptoms/Injury Associated Symptoms: Positive for Nausea, Blurred Vision and Photophobia; Negative for Fever, Vomiting, Sore Throat, Sinus Pressure, Numbness, Tingling, Preceding Aura, Visual Changes or Visual Loss Narrative Narrative: Patient presents with a headache that began this morning approximately 6 hours prior to arrival. Patient states it began rather suddenly. Patient states it is different than her typical migraines in that it is localized to the right side of her head. Patient states her typical migraines her over the frontal area. Patient does admit to some photophobia. Patient admits to some nausea but denies any vomiting. Patient does admit to some pain in her neck and back. Patient admits to some blurry vision but denies any scotoma. Patient denies any trauma or injury. [facility] Medical History Alcohol use Arthritis Back pain Chronic bronchitis Former smoker Headache, migraine Heartburn Hormone deficiency Inactive TB Injury of head and neck Leg cramps Obesity BONNIE (obstructive sleep apnea) PCOS (polycystic ovarian syndrome) Restless legs Seizures Vitamin deficiency Home Medications cholecalciferol (vitamin D3) 50 mcg (2,000 unit) tablet (Vitamin D3) 50 mcg PO DAILY 11/04/22 [History Last Taken 11/08/22] multivitamin (Daily Multi-Vitamin tablet) 1 tab PO DAILY 11/04/22 [History Last Taken 11/08/22] naproxen 500 mg tablet 500 mg PO BID PRN PRN Pain #30 tabs 11/11/22 [Rx Last Taken Unknown] clotrimazole 10 mg joe See Rx Instructions .Route .COMPLEX #70 tabs 11/14/22 [Rx Last Taken Unknown] Allergy/AdvReac Type Severity Reaction Status Date / Time shellfish derived Allergy Severe Angioedema Verified 12/22/22 08:50 hydromorphone HCl Allergy Hives Verified 12/22/22 08:50 [From Dilaudid] Penicillins Allergy Rash Verified 12/22/22 08:50 Family History Mother Arthritis Hormone disorder Melanoma Seizures Father Depression Heart disease Grandfather Diabetes Heart disease Skin cancer Sister Hormone disorder Grandmother Respiratory disease Surgical History H/O: knee surgery History of appendectomy History of foot surgery History of hysterectomy (~11/11/22) History of shoulder surgery S/P cholecystectomy S/P laparoscopic assisted vaginal hysterectomy (LAVH) Social History Smoking Status: Former smoker alcohol intake: current alcohol intake frequency: a few times a week substance use type: does not use what type of physical activity do you participate in: walking frequency: 1-2 times per week seatbelt use: always do you feel safe at home: Yes additional social history: Khadra MORALES ROS ED Constitutional Constitutional ED: Denies chills or fever(s) Eyes Eyes: Reports blurry vision; Denies diplopia ENT ENT ED: Denies rhinorrhea or sore throat Cardiovascular Cardiovascular: Reports chest pain; Denies palpitations Respiratory/Chest Respiratory/Chest: Denies cough or dyspnea Gastrointestinal Gastrointestinal: Reports nausea; Denies vomiting Genitourinary Genitourinary ED: Denies dysuria or hematuria Musculoskeletal Musculoskeletal: Reports back pain and neck pain Integumentary Denies abscess or rash Neurologic Neurologic: Reports headache(s); Denies weakness Allergic/Immunologic Allergic/Immunologic ED: Denies mouth swelling or urticaria EXAM Physical Exam Const Vital Signs: 12/22/22 08:49 Temperature 97.8 F Temperature Source Temporal Pulse Rate 58 L Respiratory Rate 14 Blood Pressure 122/75 H Blood Pressure Mean 90 Pulse Ox 100 Oxygen Delivery Method Room Air Positive well nourished and well developed General Appearance ED: well developed and NAD HEENT Reports normocephalic and moist mucous membranes atraumatic; Negative for tenderness, temporal artery tenderness or vesicular rash Neck supple, no meningeal signs and no JVD Resp normal respiratory effort and clear to auscultation bilaterally Cardio regular rate and regular rhythm GI non-tender and non-distended Palpation: soft Back/Spine Back/Spine Narrative: There is some mild tenderness and spasm of the cervical paraspinal muscles. There is no midline tenderness. There is no bony crepitance or step-off noted. There is good range of motion. There are no meningeal signs noted. Extremity normal to inspection and full ROM Neuro oriented x3, CN's II-XII intact bilaterally and no sensory deficits noted Mang[place] Coma Scale: document GCS findings Spontaneous Obeys Commands Oriented 15 Sensorium / Orientation: awake and alert Speech: speech normal Motor Exam: strength 5/5 throughout Psych mental status grossly normal MDM MDM MDM Narrative Medical decision making narrative: Differential diagnosis includes migraine headache, intracranial bleeding, and tension headache. CT scan of the brain will be obtained to assess for intracranial bleeding. Radiography Diagnostic Testing: Clinical Impression(s) from Imaging Studies Brain CT 12/22/22 08:59 IMPRESSION: No acute intracranial process. Electronically Signed: Gerardo Peña MD at 9:54 EDT , CT scan of the brain was obtained. There is no acute intracranial abnormality. This was interpreted by the radiologist and was also independently reviewed by myself. Treatment and Re-Evaluation Narrative: Patient was given IV fluids, Compazine, and Benadryl. Patient is feeling better on reevaluation. Patient was advised of her findings. Patient was instructed to rest in a dark quiet room. Patient was instructed to drink plenty of fluids. Patient was instructed to follow-up with her primary care physician in 5 to 7 days. Patient understood and was agreeable with the plan. All questions were answered. Discharge Plan Triage Chief Complaint: Headache ED Provider: Marcelo Moy Dx/Rx/DC Orders Clinical Impression: Migraine headache, Obesity Instructions: ED, Migraine (Classical) Prescriptions: No Action clotrimazole 10 mg joe See Rx Instructions .ROUTE .COMPLEX Qty: 70 0RF Rx Instructions: 10 mg to affected mucosal area 5 times a day dispense amount sufficient for 2 weeks multivitamin [Daily Multi-Vitamin] Tablet 1 tab PO DAILY cholecalciferol (vitamin D3) [Vitamin D3] 50 mcg (2,000 unit) tablet 50 mcg PO DAILY naproxen [naproxen] 500 mg tablet 500 mg PO BID PRN PRN (Reason: Pain) Qty: 30 1RF Primary Care Provider: Yasmani Beltrán NP Referrals: Yasmani Beltrán NP, CERAMIC RESEARCH ENGINEER-C [Primary Care Provider] - 5-7 Days Disposition Disposition: Home, Self Care
[2022-12-22] MEDS: 0.9% Normal Saline (1000mL) 1,000 ML 999 ML IV (09:18)
[2022-12-22] MEDS: DiphenhydrAMINE 50 MG/ML Syringe 25 MG IV (09:21)
[2022-12-22] MEDS: proCHLORPERazine 10 MG/2 ML Vial IV (09:22)
[2022-12-22 10:27] VITALS: BP 134/78; PULSE 64; RESP 14; TEMP 37; O2SAT 99
== END 2022-12-22 10:28 | disposition home or self-care (01) ==
PROVIDERS: Emergency Provider Emergency Medicine; PCP Nurse Practitioner Family; Visit Provider Emergency Medicine
DX: G43.909 Migraine, unspecified, not intractable, without status migrainosus (principal); E66.9 Obesity, unspecified; Z87.891 Personal history of nicotine dependence; R07.9 Chest pain, unspecified
CPT/HCPCS: 70450; 99283; J7030

== ENCOUNTER → 2023-05-28 | Outpatient (CLI) | payer OTHER, SELFPAY | END | disposition home or self-care (01) | PROVIDERS: Referring Provider Obstetrics & Gynecology; Visit Provider Obstetrics & Gynecology | DX: R10.2 Pelvic and perineal pain (principal) | CPT/HCPCS: 87086 ==

== ENCOUNTER 2023-07-02 | Emergency (ER) | payer OTHER, SELFPAY ==
[2023-07-02 00:03] VITALS: BP 146/95; PULSE 82; RESP 16; TEMP 36.6; O2SAT 100; BMI 36.3
--- NOTE | 2023-07-02 00:28 | EX.ED.DYSGE1 ---
HPI History of Present Illness Chief Complaint: Head Injury Informant: patient and spouse/S.O. Narrative Narrative: Patient is a 37-year-old female with past medical history of PCOS. She states that roughly an hour prior to arrival she was bent over feeding sheep. She states she stood up and hit the back of her head on a cabinet. She denies any loss of consciousness but states she was dazed from the injury. She states since that time she has had mild headache with light sensitivity and nausea. She denies any history of bleeding disorder or blood thinner use but secondary to the trauma presents for evaluation. [facility] Medical History Alcohol use Arthritis Back pain Chronic bronchitis Former smoker Headache, migraine Heartburn Hormone deficiency Inactive TB Injury of head and neck Leg cramps Obesity BONNIE (obstructive sleep apnea) PCOS (polycystic ovarian syndrome) Restless legs Seizures Vitamin deficiency Home Medications tirzepatide 12.5 mg/0.5 mL subcutaneous pen injector (Mounjaro) 12.5 mg subcut QWEEK 07/02/23 [History Last Taken Unknown] Allergy/AdvReac Type Severity Reaction Status Date / Time shellfish derived Allergy Severe Angioedema Verified 07/02/23 00:01 hydromorphone HCl Allergy Hives Verified 07/02/23 00:01 [From Dilaudid] Penicillins Allergy Rash Verified 07/02/23 00:01 Family History Mother Arthritis Hormone disorder Melanoma Seizures Father Depression Heart disease Grandfather Diabetes Heart disease Skin cancer Sister Hormone disorder Grandmother Respiratory disease Surgical History H/O: knee surgery History of appendectomy History of foot surgery History of hysterectomy (~11/11/22) History of shoulder surgery S/P cholecystectomy S/P laparoscopic assisted vaginal hysterectomy (LAVH) Social History Smoking Status: Former smoker alcohol intake: current alcohol intake frequency: a few times a week substance use type: does not use what type of physical activity do you participate in: walking frequency: 1-2 times per week seatbelt use: always do you feel safe at home: Yes additional social history: Khadra ROS ROS ED Constitutional Constitutional ED: Denies chills or fever(s) Eyes Eyes: Reports other Details: Positive photophobia ; Denies blurry vision ENT ENT ED: Denies sore throat Cardiovascular Cardiovascular: Denies chest pain Respiratory/Chest Respiratory/Chest: Denies cough or dyspnea Gastrointestinal Gastrointestinal: Reports nausea; Denies abdominal pain, diarrhea or vomiting Genitourinary Genitourinary ED: Denies dysuria Musculoskeletal Musculoskeletal: Reports neck pain Integumentary Reports other Details: Positive scalp abrasion Neurologic Neurologic: Reports headache(s); Denies paresthesias or weakness Hematologic/Lymphatic Hematologic/Lymphatic: Denies easy bleeding or easy bruising EXAM Physical Exam Const Vital Signs: 07/02/23 00:03 Temperature 97.8 F Temperature Source Temporal Pulse Rate 82 Respiratory Rate 16 Blood Pressure 146/95 H Blood Pressure Mean 112 Pulse Ox 100 Positive well nourished and well developed General Appearance ED: well developed HEENT HEENT Narrative: There is a 1 x 2 cm hematoma along the right posterior upper parietal/occipital portion of the scalp. There is a superficial abrasion in the center of this without active bleeding. No signs of depressed or basilar skull fracture Eyes PERRL and EOMs intact bilaterally General Eye ED: Negative for scleral icterus Neck supple Neck Narrative: No bony deformity or step-off of the cervical spine no midline pain with palpation Patient is able to move her neck in all directions without pain Resp normal respiratory effort and clear to auscultation bilaterally Cardio regular rate and regular rhythm Extremity normal to inspection Neuro oriented x3, CN's II-XII intact bilaterally and no sensory deficits noted Neuro Narrative: Cranial nerves II through XII are grossly intact there are no focal neurologic deficits No pronator drift no dysmetria no truncal ataxia NIH stroke scale score of 0 Sensorium / Orientation: alert Motor Exam: strength 5/5 throughout Psych mental status grossly normal Skin Skin Narrative: Patient has a 1 x 2 cm hematoma to the right sided parietal/occipital portion of the scalp There is a superficial abrasion in the center of this without active bleeding or signs of infection Remainder of the exam is normal MDM MDM MDM Narrative Medical decision making narrative: Patient arrived to the ER hypertensive but otherwise with stable vitals. She reported standing up from a bent over position striking the upper/occipital portion of her head. She was dazed without LOC and does not take any type of blood thinner or have history of bleeding disorder. Differential diagnosis is for concussion versus traumatic brain injury such as skull fracture versus subdural or epidural hematoma. I discussed with patient the option of obtaining a head CT based on her injury and symptoms. However if she was a child not an adult PECARN rules recommend observation versus scan. Therefore at this time she does not feel the need to undergo imaging studies I have low concern for traumatic brain injury or skull fracture. Patient will be instructed on symptoms consistent with concussion and when to return does agree to this. Therefore at this time as the wound does not need closed and her exam does not suggest underlying traumatic brain injury she is otherwise safe for discharge History & Record Review Discussion w/independent historian: Patient and Significant other Discharge Plan Triage Chief Complaint: Head Injury ED Provider: Amadeo Lagunas Dx/Rx/DC Orders Clinical Impression: Concussion, Head injury, PCOS (polycystic ovarian syndrome) Instructions: Concussion Dc, ED Head Injury (Adult) Prescriptions: No Action Mounjaro 12.5 mg/0.5 mL pen injector 12.5 mg subcut QWEEK Primary Care Provider: Yasmani Beltrán Referrals: Yasmani Beltrán, GOLF COURSE PATROLLER-C [Primary Care Provider] - Activity Restrictions/Additional Instructions: If you develop bouts of vomiting or have change in mental status please return to the ER for repeat evaluation Disposition Disposition: Home, Self Care
== END 2023-07-02 00:35 | disposition home or self-care (01) ==
PROVIDERS: Emergency Provider Emergency Medicine; PCP Nurse Practitioner Family; Visit Provider Emergency Medicine
DX: S06.0X0A Concussion without loss of consciousness, initial encounter (principal); E28.2 Polycystic ovarian syndrome; G47.33 Obstructive sleep apnea (adult) (pediatric); Z87.891 Personal history of nicotine dependence; X58.XXXA Exposure to other specified factors, initial encounter
CPT/HCPCS: 99282

== ENCOUNTER → 2024-07-18 | Outpatient (CLI) | payer OTHER, SELFPAY | END | disposition home or self-care (01) | LOC: LABSPEC 16:03 | PROVIDERS: PCP Nurse Practitioner Family; Referring Provider Nurse Practitioner Women's Health; Visit Provider Nurse Practitioner Women's Health | DX: R10.2 Pelvic and perineal pain (principal) | CPT/HCPCS: 87070; 87086; 87088; 87205 ==

== ENCOUNTER 2024-08-19 15:31 | Emergency (ER) | payer OTHER, SELFPAY ==
[2024-08-19 15:33] VITALS: BP 133/83; PULSE 76; RESP 16; TEMP 36.6; O2SAT 98; BMI 41.5
--- NOTE | 2024-08-19 16:02 | EX.ED.GENINJ ---
HPI History of Present Illness Chief Complaint: Head Injury Informant: patient Onset/Context/Timing Onset: Yesterday Mechanism/Context: Blunt Injury Quality of Pain: Sharp Location: Top of head Worsened by: Lights Relieved by: Nothing Associated Symptoms Associated Symptoms: Positive for Parasthesias and Loss of consciousness; Negative for Weakness, Loss of function, Inability to ambulate or Amnesia Length of loss of consciousness: Few seconds Narrative Narrative: Patient presents with head injury that occurred last night/early this morning. Patient states she hit her head on a metal bar from a forklift. Patient states she had a brief loss of consciousness for few seconds. Patient admits to some nausea and vomiting. Patient admits to some blurred vision. Patient states her headache is worse with lights. Patient states nothing makes it better. Patient admits to some numbness and tingling into her right hand that has resolved. Patient denies any other injuries. [facility] Medical History Alcohol use Restless legs Back pain Injury of head and neck Seizures Heartburn Former smoker Leg cramps BONNIE (obstructive sleep apnea) Vitamin deficiency Obesity PCOS (polycystic ovarian syndrome) Hormone deficiency Headache, migraine Chronic bronchitis Arthritis Inactive TB Home Medications ?Medication ?Instructions ?Recorded ?Last Taken ?Type NK 07/18/24 Unknown History Allergy/AdvReac Type Severity Reaction Status Date / Time shellfish derived Allergy Severe Angioedema Verified 08/19/24 15:36 hydromorphone HCl (From Allergy Hives Verified 08/19/24 15:36 Dilaudid) Penicillins Allergy Rash Verified 08/19/24 15:36 Family History Mother Arthritis Hormone disorder Melanoma Seizures Father Depression Heart disease Grandfather Diabetes Heart disease Skin cancer Sister Hormone disorder Grandmother Respiratory disease Surgical History History of hysterectomy (~11/11/22) S/P laparoscopic assisted vaginal hysterectomy (LAVH) History of foot surgery H/O: knee surgery History of appendectomy History of shoulder surgery S/P cholecystectomy Social History Smoking Status: Former smoker alcohol intake: current alcohol intake frequency: a few times a week substance use type: does not use what type of physical activity do you participate in: walking frequency: 1-2 times per week seatbelt use: always do you feel safe at home: Yes additional social history: Khadra MORALES ED Constitutional Constitutional ED: Denies chills or fever(s) Eyes Eyes: Reports blurry vision; Denies change in vision ENT ENT ED: Denies rhinorrhea or sore throat Cardiovascular Cardiovascular: Denies chest pain or palpitations Respiratory/Chest Respiratory/Chest: Denies cough or dyspnea Gastrointestinal Gastrointestinal: Reports nausea and vomiting Genitourinary Genitourinary ED: Denies dysuria or hematuria Musculoskeletal Musculoskeletal: Denies back pain or neck pain Integumentary Denies abscess or rash Neurologic Neurologic: Reports headache(s) and paresthesias RUE (Resolved and); Denies weakness Allergic/Immunologic Allergic/Immunologic ED: Denies mouth swelling or urticaria EXAM Physical Exam Const Vital Signs: 08/19/24 15:33 08/19/24 16:17 Temperature 97.9 F Temperature Source Oral Pulse Rate 76 Respiratory Rate 16 Respiratory Effort Normal Non-Labored Respiratory Depth Normal Respiratory Pattern Normal Blood Pressure 133/83 H Blood Pressure Mean 99 Pulse Ox 98 Oxygen Delivery Method Room Air Room Air Positive well nourished and well developed General Appearance ED: well developed and NAD HEENT HEENT Narrative: There is tenderness and mild edema over the top of the scalp near the vertex. There is no bony crepitance or step-off. There are no lacerations or abrasions noted. There is no bony crepitance or step-off noted. trauma and tenderness Neck full ROM Neuro oriented x3, CN's II-XII intact bilaterally, moves all extremities, no focal motor deficits and no sensory deficits noted João Coma Scale: document GCS findings Spontaneous Obeys Commands Oriented 15 Sensorium / Orientation: alert Motor Exam: strength 5/5 throughout Psych mental status grossly normal and thought process normal Skin no wounds MDM MDM MDM Narrative Medical decision making narrative: Differential diagnosis includes concussion, closed head injury, intracranial bleeding, and cranial fracture. CT scan of the brain will be obtained to assess for intracranial bleeding and fracture. History & Record Review Additional record(s) reviewed:: Prior ED visit Radiography Diagnostic Testing: Clinical Impression(s) from Imaging Studies Brain CT 08/19/24 16:15 IMPRESSION: No acute intracranial finding. Reading Location: [facility] CT scan of the brain was obtained. There is no acute intracranial abnormality. This was interpreted by the radiologist and was also independently reviewed by myself. Discharge Plan Triage Chief Complaint: Head Injury ED Provider: Marcelo Moy Dx/Rx/DC Orders Clinical Impression: Concussion, PCOS (polycystic ovarian syndrome) Instructions: ED Concussion Prescriptions: No Action NK Stand Alone Forms: ED Work / School Excuse Primary Care Provider: Yasmani Beltrán Referrals: Yasmani Beltrán, PATROL COMMANDER-C [Primary Care Provider] - 5-7 Days Print Language: Slovenian Disposition Disposition: Home, Self Care
--- NOTE | 2024-08-19 16:15 | CT_ITS ---
EXAM: BRAIN/HEAD WITHOUT CONTRAST CLINICAL HISTORY: 39 y/o F with INJURY/PAIN. COMPARISON: CT head 12/22/2022. TECHNIQUE: Routine CT imaging of the head without IV contrast. Additional multiplanar reformats were obtained. Dose reduction techniques were used including intermediate exposure control (AEC),iterative reconstruction technique, and/or mA and/or KV dose adjustments based on patient's size. FINDINGS: No intracranial hemorrhage or herniation. The muller-white matter interfaces are maintained. No ventriculomegaly. The basal cisterns are patent. The orbits, visualized paranasal sinuses and mastoids are unremarkable. No acute calvarial fracture or scalp hematoma. CT/Brain/Head without Contrast IMPRESSION: No acute intracranial finding. Reading Location: [id number]
[2024-08-19 16:55] VITALS: BP 128/74; PULSE 63; RESP 16; TEMP 36.3; O2SAT 99
== END 2024-08-19 16:56 | disposition home or self-care (01) ==
PROVIDERS: Emergency Provider Emergency Medicine; PCP Nurse Practitioner Family; Visit Provider Emergency Medicine
DX: S06.0X0A Concussion without loss of consciousness, initial encounter (principal); Z90.710 Acquired absence of both cervix and uterus; Z87.891 Personal history of nicotine dependence; E28.2 Polycystic ovarian syndrome; Z90.49 Acquired absence of other specified parts of digestive tract; W22.8XXA Striking against or struck by other objects, initial encounter
CPT/HCPCS: 70450; 99282